=== PATIENT | female | born 1950 | race Hispanic/Latino ===

== ENCOUNTER → 2017-11-18 | Outpatient (CLI) | payer MEDICARE | END | disposition home or self-care (01) | LOC: OIH 16:43 | PROVIDERS: ATTEND Internal Medicine | DX: J84.9 Interstitial pulmonary disease, unspecified (principal); M19.011 Primary osteoarthritis, right shoulder; I51.7 Cardiomegaly | CPT/HCPCS: 71046 ==

== ENCOUNTER → 2017-11-25 | Outpatient (CLI) | payer MEDICARE | END | disposition home or self-care (01) | LOC: OIH 10:15 | PROVIDERS: ATTEND Internal Medicine | DX: J20.9 Acute bronchitis, unspecified (principal); J18.0 Bronchopneumonia, unspecified organism; M47.895 Other spondylosis, thoracolumbar region | CPT/HCPCS: 71046 ==

== ENCOUNTER → 2018-03-15 | Outpatient (CLI) | payer MEDICARE ==
[~2018-03-15] MED LIST: ALBUHFA IH; ALPR-409 PO; APIX5TAB PO; CHOL200013 PO; CLON0.5T23 PO; CYAN250014 PO; D-ME118S56 PO; DICL50TA9 PO; ERGO500014 PO; FERR325T22 PO; FOLI1TAB15 PO; FURO40TA5 PO; INSLAN SQ; LACT10SO32 PO; LEVO137T2 PO; LINA5TAB PO; LOSA100T58 PO; MAGN400C PO; MONT10TA24 PO; NAPR-337 PO; PANT40TA25 PO; POTA-79 PO; PREG100C PO; SOTA80TA PO; SYMB8060 IH; TRAM50TA4 PO
== END | disposition home or self-care (01) ==
LOC: OIH 09:03
PROVIDERS: ATTEND Internal Medicine
DX: I51.7 Cardiomegaly (principal); M13.812 Other specified arthritis, left shoulder; M13.811 Other specified arthritis, right shoulder; I50.9 Heart failure, unspecified
CPT/HCPCS: 71046

== ENCOUNTER → 2018-03-24 | Outpatient (CLI) | payer MEDICARE ==
[~2018-03-24] VITALS: Ht 152.4 cm; Wt 95.3 kg
[~2018-03-24] MED LIST changes: +CEFAZOLIN SODIUM 1 GM VIAL IVP ONE; +DESV100T16 PO; +DOCU100T PO; +LACT10SO PO; +ZOLP5TAB2 PO
[2018-03-24 15:56] LABS: BASOPHILS % (AUTO) 0.3 % (0.0-5.0); EOSINOPHILS % (AUTO) 2.4 % (0.0-8.0); HEMATOCRIT 26.9 % (36-48); LYMPHOCYTES % (AUTO) 13.6 % (21.0-51.0); MEAN CORPUSCULAR HEMOGLOBIN 30.3 pg (27.0-33.0); MEAN CORPUSCULAR HGB CONC 33.8 g/dL (32.0-36.0); MEAN CORPUSCULAR VOLUME 89.7 fL (79-99); NEUTROPHILS % (AUTO) 71.7 % (40.0-77.0); PLATELET COUNT (AUTO) 94 K/uL (130-400); RED CELL DISTRIBUTION WIDTH 15.2 % (11.0-15.5)
[2018-03-24 16:06] LABS: APPEARANCE,URINE Turbid (CLEAR); BILIRUBIN,URINE Small (NEGATIVE); COLOR,URINE Dark Yellow (YELLOW); GLUCOSE, URINE (UA) Negative (NEGATIVE); KETONES,URINE Trace mg/dL (NEGATIVE); LEUKOCYTE ESTERASE ,URINE Moderate (NEGATIVE); NITRATE,URINE Negative (NEGATIVE); OCCULT BLOOD,URINE Negative (NEGATIVE); PROTEIN,URINE POS 1+ (NEGATIVE)
[2018-03-24 16:20] LABS: INR 1.13 (0.85-1.15); PARTIAL THROMBOPLASTIN TIME 36.4 SEC (26.3-35.5); PROTHROMBIN TIME 11.8 SEC (9.6-11.6)
[2018-03-24 16:33] LABS: POTASSIUM 3.4 mmol/L (3.5-5.1)
[2018-03-24 16:45] VITALS: BP 111/41
[2018-03-24 16:46] LABS: BACTERIA,URINE Few /HPF (None Seen); RBC,URINE None Seen /HPF (0-1); SQUAMOUS EPITHELIAL CELL,UR 30-50 /HPF (0-2)
--- NOTE | 2018-03-24 16:46 | NUR ---
NOTE DR REDMOND HAS BEEN MADE AWARE THAT PATIENT TOOK ELIQUIS TODAY, ORDERS TO INSTRUCT PATIENT TO STOP ANY FURTHER DOSES. PT VERBALIZES UNDERSTANDING AND SON.
--- NOTE | 2018-03-24 17:15 | NUR ---
NOTE/ABNORMAL LABS DR. REDMOND NOTIFIED OF PT'S ABNORMAL LBAS UA- NITRATES NEGATIVE, ULEUKEST MODERATE, UWBC 6-10, HX VRE IN URINE, POTASSIUM 3.4,BUN 26, CA 8.1, PT 11.8, PTT 36.4, HGB 9.1, HCT 26.9, PLATELET 94. ALSO REPORTED THAT PT'S RIGHT LEG STILL SWOLLEN AND RED PER PREOP NURSE. PER DR. REDMOND, CANCEL PROCEDURE AND WILL RESCHEDULE PT DUE TO LOW HGB. INSTRUCT PATIENT TO SEE HER PCP FOR HER UTI. CALLED PT, SPOKE TO PT'S SON WITH PT BY HIS SIDE, EXPLAINED PROCEDURE FOR TUESDAY IS CX PER DR. REDMOND AND INSTRUCTED BOTH FOR PT TO SEE HER PRIMARY DOCTOR FOR HER UTI. Estuardo GOMEZ MANAGER AUDIT ALSO NOTIFIED.
== END | disposition home or self-care (01) ==
LOC: DAH 10:00 → EDSTATUS 15:00
PROVIDERS: ATTEND Orthopaedic Surgery
DX: M17.11 Unilateral primary osteoarthritis, right knee (principal); I48.91 Unspecified atrial fibrillation; Z79.899 Other long term (current) drug therapy
CPT/HCPCS: 36415; 80048; 81001; 85025; 85610; 85730

== ENCOUNTER 2018-04-11 14:30 | Inpatient (IN) | payer MEDICARE ==
[~2018-04-11] VITALS: Ht 154.9 cm; Wt 93.9 kg
[~2018-04-11 14:30] MED LIST changes: -ALPR-409 PO; -CEFAZOLIN SODIUM 1 GM VIAL IVP ONE; -CHOL200013 PO; -CYAN250014 PO; -D-ME118S56 PO; -INSLAN SQ; -LACT10SO PO; -LACT10SO32 PO; -NAPR-337 PO; -POTA-79 PO; -PREG100C PO; -SYMB8060 IH; -TRAM50TA4 PO; -ZOLP5TAB2 PO
[2018-06-16 16:50] VITALS: BP 165/69
[2018-06-16 17:26] LABS: APPEARANCE,URINE Clear (CLEAR); BILIRUBIN,URINE Negative (NEGATIVE); COLOR,URINE Yellow (YELLOW); GLUCOSE, URINE (UA) Negative (NEGATIVE); KETONES,URINE Negative (NEGATIVE); LEUKOCYTE ESTERASE ,URINE Trace (NEGATIVE); NITRATE,URINE Negative (NEGATIVE); OCCULT BLOOD,URINE Negative (NEGATIVE); PROTEIN,URINE Negative (NEGATIVE)
[2018-06-16 17:27] LABS: BASOPHILS % (AUTO) 0.3 % (0.0-5.0); EOSINOPHILS % (AUTO) 1.6 % (0.0-8.0); HEMATOCRIT 36.1 % (36-48); LYMPHOCYTES % (AUTO) 14.5 % (21.0-51.0); MEAN CORPUSCULAR HEMOGLOBIN 31.1 pg (27.0-33.0); MEAN CORPUSCULAR HGB CONC 33.4 g/dL (32.0-36.0); MEAN CORPUSCULAR VOLUME 93.3 fL (79-99); MONOCYTES % (AUTO) 7.8 % (3.0-13.0); NEUTROPHILS % (AUTO) 75.8 % (40.0-77.0); PLATELET COUNT (AUTO) 76 K/uL (130-400); RED BLOOD CELL COUNT(AUTO) 3.87 MIL/uL (4.00-5.50); RED CELL DISTRIBUTION WIDTH 13.9 % (11.0-15.5); WHITE BLOOD COUNT (AUTO) 3.9 K/uL (4.8-10.8)
[2018-06-16 17:33] LABS: CREATININE 0.6 mg/dL (0.5-1.5); POTASSIUM 4.1 mmol/L (3.5-5.1)
[2018-06-16 17:42] LABS: BACTERIA,URINE Rare /HPF (None Seen); RBC,URINE None Seen /HPF (0-1); SQUAMOUS EPITHELIAL CELL,UR 0-2 /HPF (0-2)
[2018-06-16] MEDS ORDERED: TRAM50TA4 PO (18:09)
[2018-06-16] MEDS ORDERED: BUDE10.2 IH (18:09)
[2018-06-16] MEDS ORDERED: ALBUTEROL NEB IH (18:09)
[2018-06-16] MEDS ORDERED: FLUTICASONE NASAL (18:09)
[2018-06-16] MEDS ORDERED: ARIP10TA16 PO (18:09)
[2018-06-16 18:23] LABS: INR 1.06 (0.85-1.15); PARTIAL THROMBOPLASTIN TIME 27.3 SEC (26.3-35.5); PROTHROMBIN TIME 11.1 SEC (9.6-11.6)
--- NOTE | 2018-06-16 18:31 | NUR ---
LABS INFORMED DR. REDMOND OF ABNORMAL UA, PLATELETS. NO ORDERS RECEIVED PROCEED WITH PLANNED PROCEDURE.
[2018-06-19] VITALS (25 sets, daily range): BP systolic 119–193; BP diastolic 45–95
[2018-06-19] MEDS ORDERED: CEFAZOLIN 3GM /D5W 100ML 100 ML IV PRN (08:00)
[2018-06-19] MEDS ORDERED: SODIUM CHLORIDE 0.9% 1000ML 1,000 ML IV ONE ×2 (10:59→12:26)
[2018-06-19] MEDS ORDERED: CEFAZOLIN SODIUM 1 GM VIAL ONE ×2 (10:59→12:00)
[2018-06-19 11:10] LABS: PLATELET COUNT (AUTO) 68 K/uL (130-400)
[2018-06-19] MEDS ORDERED: GENTAMICIN SULFATE 240 MG in SODIUM CHLORIDE 0.9% 100 ML IV SCH (11:15)
[2018-06-19] MEDS ORDERED: ACETAMINOPHEN EXTRA STRENGTH 500 MG TABLET ONE (11:25)
[2018-06-19] MEDS ORDERED: CELECOXIB 200 MG CAP ONE (11:25)
[2018-06-19] MEDS ORDERED: METOCLOPRAMIDE 10 MG/2 ML VIAL ONE (11:25)
[2018-06-19] MEDS ORDERED: OXYCODONE HCL 10 MG TAB.SR.12H PO ONE (11:26)
[2018-06-19 11:53] LABS: INR 1.09 (0.85-1.15); PROTHROMBIN TIME 11.4 SEC (9.6-11.6)
[2018-06-19 12:27] LABS: PARTIAL THROMBOPLASTIN TIME 27.1 SEC (26.3-35.5)
[2018-06-19] MEDS ORDERED: ROPIVACAINE 0.5% 5MG/ML 30ML IJ ONE (13:04)
[2018-06-19] MEDS: TRANEXAMIC ACID 1000MG/10ML IV ONE ×2 (13:45→16:00)
[2018-06-19] MEDS ORDERED: VANCOMYCIN HCL 1 GM VIAL ONE (14:46)
[2018-06-19] MEDS ORDERED: POTASSIUM CHLORIDE 10% ELIXIR 20 MEQ/15 ML UDCUP PO PRN (15:45)
[2018-06-19] MEDS ORDERED: CALCIUM CARBONATE 500 MG TABLET PO PRN (15:45)
[2018-06-19] MEDS ORDERED: POTASSIUM CHLORIDE 20 MEQ ERTAB PO PRN (15:45)
[2018-06-19] MEDS ORDERED: TEMAZEPAM 15 MG CAPSULE PO PRN (15:45)
[2018-06-19] MEDS ORDERED: TRAMADOL HCL 50 MG TABLET PO PRN (15:45)
[2018-06-19] MEDS: SODIUM CHLORIDE 0.9% 1000ML 1,000 ML IV SCH (15:45)
[2018-06-19] MEDS ORDERED: FERROUS FUMARATE 324 MG TABLET PO PRN (15:45)
[2018-06-19] MEDS ORDERED: ONDANSETRON HCL 4 MG/2 ML VIAL IVP PRN (15:45)
[2018-06-19] MEDS ORDERED: DiphenhydrAMINE HCL 50 MG/ML VIAL IVP PRN (15:45)
[2018-06-19] MEDS ORDERED: OXYCODONE HCL 5 MG TAB PO PRN (15:45)
[2018-06-19] MEDS ORDERED: LIDOCAINE HCL-MPF 1% 2ML VIAL IVP PRN (15:45)
[2018-06-19] MEDS ORDERED: POTASSIUM CHLORIDE 20MEQ/100ML 100 ML IV PRN (15:45)
[2018-06-19] MEDS ORDERED: IPRATROPIUM/ALBUTEROL SULFATE 3 ML SOLUTION IH ONE (16:15)
[2018-06-19] MEDS: INSULIN HUMULIN R 100 UNIT/ML 3ML SQ SCH ×2 (16:30→21:00)
[2018-06-19] MEDS ORDERED: HYDRALAZINE HCL 20 MG/ML VIAL ONE (16:42)
[2018-06-19] MEDS ORDERED: DEXTROSE 50%-WATER 50 ML DISP.SYRIN IV ONE (16:55)
--- NOTE | 2018-06-19 17:49 | NUR ---
DCP CM met with pt and family discussed dc plans. Pt is semi-independent prior to admission, lives at home with son. Has a walker, bskendall, provider, [facility]. Denies any other equipments/services. Pt feels safe to go back home son able to assist with transportation and needs as necessary. Pt agreeable for HH vs SNF if necessary, would like to decide once knee is stable and closer to dc. DC plan to home vs home w/HH or rehab. CM ot cont to follow up. Addendum: 06/19/18 at 1751 by OLMAN CHAMBERLAIN LVN CM Amended: Links added.
--- NOTE | 2018-06-19 18:00 | NUR ---
DR. MARY HALL MD REGARDING CONSULT. NO ANSWER AT THIS TIME.
[2018-06-19] MEDS ORDERED: SUB TO ALBUTEROL 2.5MG/3ML NEBULES PER P&T IH SCH (19:30)
[2018-06-19] MEDS: CEFAZOLIN SODIUM 1 GM VIAL IVP SCH (20:18)
[2018-06-19] MEDS: FAMOTIDINE 20MG TAB 20 MG TAB PO SCH (20:18)
[2018-06-19] MEDS: HEPARIN SODIUM 5000UNIT/ML 1ML VIAL SQ SCH (20:19)
[2018-06-19] MEDS: OXYCODONE HCL 5 MG TAB PO PRN (20:26)
[2018-06-19] MEDS ORDERED: DICLOFENAC SODIUM 50 MG PO SCH (21:00)
[2018-06-19] MEDS ORDERED: ALBUTEROL IH PRN (21:00)
[2018-06-19] MEDS ORDERED: TRAMADOL HCL 50 MG TABLET PO SCH (21:00)
[2018-06-19] MEDS: ARIPIPRAZOLE 5 MG TABLET PO SCH (21:10)
[2018-06-19] MEDS: SOTALOL HCL 80 MG TABLET PO SCH (21:10)
[2018-06-19] MEDS: FUROSEMIDE 40 MG TABLET PO SCH (21:10)
[2018-06-19] MEDS: CLONAZEPAM 0.5 MG TABLET PO PRN (21:10)
[2018-06-19] MEDS: FERROUS SULFATE 325 MG TABLET.DR PO SCH (21:10)
[2018-06-19] MEDS ORDERED: DOCUSATE SODIUM 100 MG CAP PO PRN (21:15)
[2018-06-20] VITALS (7 sets, daily range): BP systolic 101–128; BP diastolic 55–70
[2018-06-20] MEDS: OXYCODONE HCL 5 MG TAB PO PRN ×4 (00:30→20:44)
[2018-06-20] MEDS: SODIUM CHLORIDE 0.9% 1000ML 1,000 ML IV SCH ×2 (01:45→11:45)
[2018-06-20] MEDS ORDERED: OXYCODONE HCL 10 MG TAB.SR.12H PO ONE (03:10)
[2018-06-20] MEDS: CEFAZOLIN SODIUM 1 GM VIAL IVP SCH (03:38)
[2018-06-20 04:43] LABS: HEMATOCRIT 32.5 % (36-48); MEAN CORPUSCULAR HEMOGLOBIN 31.4 pg (27.0-33.0); MEAN CORPUSCULAR HGB CONC 33.5 g/dL (32.0-36.0); MEAN CORPUSCULAR VOLUME 93.7 fL (79-99); PLATELET COUNT (AUTO) 75 K/uL (130-400); RED BLOOD CELL COUNT(AUTO) 3.47 MIL/uL (4.00-5.50); RED CELL DISTRIBUTION WIDTH 13.4 % (11.0-15.5); WHITE BLOOD COUNT (AUTO) 2.2 K/uL (4.8-10.8)
[2018-06-20 04:54] LABS: CREATININE 0.8 mg/dL (0.5-1.5)
[2018-06-20] MEDS: LEVOTHYROXINE 25 MCG TABLET PO SCH (05:28)
[2018-06-20] MEDS: LEVOTHYROXINE 112 MCG TABLET PO SCH (05:28)
[2018-06-20] MEDS: INSULIN HUMULIN R 100 UNIT/ML 3ML SQ SCH ×4 (05:29→21:00)
[2018-06-20 05:58] LABS: BASOPHILS % (MANUAL) 1 % (0-2); EOSINOPHILS % (MANUAL) 1 % (1-6); LYMPHOCYTES % (MANUAL) 5 % (22-44); MAN.DIFF COMMENT-IMPRESSION MANUAL DIFFERENTIAL; MONOCYTES % (MANUAL) 3 % (2-9); SEGMENTED NEUTROPHILS % 90 % (40-70)
[2018-06-20 06:00] LABS: PLATELET MORPHOLOGY COMMENT MARKED DEC
[2018-06-20] MEDS: ALBUTEROL SULFATE 0.083% 2.5 MG/3 ML INH IH PRN ×4 (06:26→21:21)
[2018-06-20] MEDS ORDERED: PANTOPRAZOLE SODIUM 40 MG TABLET.DR PO SCH (09:00)
[2018-06-20] MEDS: SYMBICORT 160-4.5 MCG INHALER IH SCH ×2 (09:00→21:00)
[2018-06-20] MEDS: SOTALOL HCL 80 MG TABLET PO SCH ×2 (09:00→20:39)
[2018-06-20] MEDS: FLUTICASONE PROPIONATE 50MCG/SPRAY 16 GM BOTTLE NS SCH ×2 (09:00→21:00)
[2018-06-20] MEDS: DESVENLAFAXINE SUCCINATE 100 MG PO SCH (09:00)
[2018-06-20] MEDS: LOSARTAN 100 MG TABLET PO SCH (09:00)
[2018-06-20] MEDS: HEPARIN SODIUM 5000UNIT/ML 1ML VIAL SQ SCH ×2 (09:17→20:43)
[2018-06-20] MEDS: FOLIC ACID 1 MG TABLET PO SCH (09:28)
[2018-06-20] MEDS: MONTELUKAST SODIUM 10 MG TAB PO SCH (09:28)
[2018-06-20] MEDS: MAGNESIUM OXIDE 400 MG TABLET PO SCH (09:28)
[2018-06-20] MEDS: FERROUS SULFATE 325 MG TABLET.DR PO SCH ×2 (09:28→20:39)
[2018-06-20] MEDS: FAMOTIDINE 20MG TAB 20 MG TAB PO SCH ×2 (09:28→20:39)
[2018-06-20] MEDS: LINAGLIPTIN 5 MG TABLET PO SCH (09:28)
[2018-06-20] MEDS: POLYETHYLENE GLYCOL 3350 17 GM POWD.PACK PO SCH (09:38)
[2018-06-20] MEDS: FUROSEMIDE 40 MG TABLET PO SCH ×2 (11:30→20:39)
[2018-06-20] MEDS: CLONAZEPAM 0.5 MG TABLET PO PRN ×2 (13:57→22:39)
[2018-06-20] MEDS: ARIPIPRAZOLE 5 MG TABLET PO SCH (20:39)
[2018-06-21] VITALS (30 sets, daily range): BP systolic 109–175; BP diastolic 54–117
[2018-06-21] MEDS: ALBUTEROL SULFATE 0.083% 2.5 MG/3 ML INH IH PRN ×3 (01:03→11:14)
[2018-06-21] MEDS: LEVOTHYROXINE 25 MCG TABLET PO SCH (05:28)
[2018-06-21] MEDS: LEVOTHYROXINE 112 MCG TABLET PO SCH (05:28)
[2018-06-21] MEDS: OXYCODONE HCL 5 MG TAB PO PRN ×2 (05:29→12:20)
[2018-06-21] MEDS: INSULIN HUMULIN R 100 UNIT/ML 3ML SQ SCH ×3 (05:46→21:00)
[2018-06-21 06:29] LABS: HEMATOCRIT 31.8 % (36-48); MEAN CORPUSCULAR HEMOGLOBIN 31.9 pg (27.0-33.0); MEAN CORPUSCULAR HGB CONC 33.7 g/dL (32.0-36.0); MEAN CORPUSCULAR VOLUME 94.8 fL (79-99); PLATELET COUNT (AUTO) 62 K/uL (130-400); RED BLOOD CELL COUNT(AUTO) 3.36 MIL/uL (4.00-5.50); RED CELL DISTRIBUTION WIDTH 13.8 % (11.0-15.5); WHITE BLOOD COUNT (AUTO) 2.7 K/uL (4.8-10.8)
[2018-06-21 06:41] LABS: CREATININE 0.7 mg/dL (0.5-1.5); POTASSIUM 3.8 mmol/L (3.5-5.1)
--- NOTE | 2018-06-21 07:40 | NUR ---
LABWORK REPORTED PLATELET COUNT AND WBC LABWORK REPORTED TO DR. REDMOND, NO NEW ORDERS AT THE TIME. READY WITH 2 PLATELET UNITS IF NEEDED IN SURGERY. WILL CONTINUE TO MONITOR PT CLOSELY.
[2018-06-21 08:00] LABS: EOSINOPHILS % (MANUAL) 2 % (1-6); LYMPHOCYTES % (MANUAL) 23 % (22-44); MAN.DIFF COMMENT-IMPRESSION MANUAL DIFFERENTIAL; MONOCYTES % (MANUAL) 5 % (2-9); PLATELET MORPHOLOGY COMMENT DECREASED; SEGMENTED NEUTROPHILS % 70 % (40-70)
[2018-06-21] MEDS: SOTALOL HCL 80 MG TABLET PO SCH ×2 (08:45→23:51)
[2018-06-21] MEDS: FAMOTIDINE 20MG TAB 20 MG TAB PO SCH ×2 (08:45→23:59)
[2018-06-21] MEDS: SYMBICORT 160-4.5 MCG INHALER IH SCH ×2 (09:00→21:00)
[2018-06-21] MEDS: LINAGLIPTIN 5 MG TABLET PO SCH (09:00)
[2018-06-21] MEDS: LOSARTAN 100 MG TABLET PO SCH (09:00)
[2018-06-21] MEDS: MONTELUKAST SODIUM 10 MG TAB PO SCH (09:00)
[2018-06-21] MEDS: DESVENLAFAXINE SUCCINATE 100 MG PO SCH (09:00)
[2018-06-21] MEDS: POLYETHYLENE GLYCOL 3350 17 GM POWD.PACK PO SCH (09:00)
[2018-06-21] MEDS: HEPARIN SODIUM 5000UNIT/ML 1ML VIAL SQ SCH (09:00)
[2018-06-21] MEDS: FUROSEMIDE 40 MG TABLET PO SCH ×2 (09:00→23:59)
[2018-06-21] MEDS: FLUTICASONE PROPIONATE 50MCG/SPRAY 16 GM BOTTLE NS SCH ×2 (09:00→21:00)
[2018-06-21] MEDS: FERROUS SULFATE 325 MG TABLET.DR PO SCH (09:00)
[2018-06-21] MEDS: FOLIC ACID 1 MG TABLET PO SCH (09:00)
[2018-06-21] MEDS: MAGNESIUM OXIDE 400 MG TABLET PO SCH (09:00)
[2018-06-21] MEDS: CLONAZEPAM 0.5 MG TABLET PO PRN (10:36)
[2018-06-21] MEDS ORDERED: CEFAZOLIN SODIUM 1 GM VIAL IVP PRN (13:45)
[2018-06-21] MEDS ORDERED: SODIUM CHLORIDE 0.9% 1000ML 1,000 ML IV ONE ×2 (14:13→14:14)
[2018-06-21] MEDS ORDERED: ROPIVACAINE 0.5% 5MG/ML 30ML IJ ONE (15:42)
[2018-06-21] MEDS ORDERED: SUCCINYLCHOLINE 200MG/10ML SYR ONE (15:44)
[2018-06-21] MEDS ORDERED: DEXTROSE 50%-WATER 50 ML DISP.SYRIN IV ONE (15:44)
[2018-06-21] MEDS ORDERED: LIDOCAINE PF 2% 5ML ABBOJECT ONE (15:44)
[2018-06-21] MEDS ORDERED: PROPOFOL 10 MG/ML 20ML VIAL IV ONE (15:46)
[2018-06-21] MEDS ORDERED: DEXAMETHASONE SOD PHOSPHATE 10MG/ML 1ML VIAL ONE (15:46)
[2018-06-21] MEDS ORDERED: NEOSTIGMINE 5MG/5ML SYR IV ONE (15:46)
[2018-06-21] MEDS ORDERED: GLYCOPYRROLATE 1 MG/5 ML SYRINGE ONE (15:46)
[2018-06-21] MEDS ORDERED: ONDANSETRON HCL 4 MG/2 ML VIAL ONE (15:46)
[2018-06-21] MEDS ORDERED: MIDAZOLAM HCL 1 MG/ML 2ML VIAL ONE (15:47)
[2018-06-21] MEDS ORDERED: FENTANYL CITRATE PF 50 MCG/1 ML 2ML VIAL ONE ×3 (15:47→19:48)
[2018-06-21] MEDS ORDERED: ROCURONIUM 10MG/1ML SYR 10 MG/ML ML ONE (15:47)
[2018-06-21] MEDS ORDERED: CEFAZOLIN SODIUM 1 GM VIAL ONE ×3 (15:54→19:38)
[2018-06-21] MEDS ORDERED: LIDOCAINE HCL 4% LTA SOL 4 ML VIAL ONE (20:04)
[2018-06-21] MEDS ORDERED: FUROSEMIDE 10 MG/ML 4ML VIAL ONE (20:07)
[2018-06-21] MEDS: SODIUM CHLORIDE 0.9% 1000ML 1,000 ML IV SCH (20:50)
[2018-06-21] MEDS ORDERED: KETOROLAC TROMETHAMINE 15MG/ML IV PRN (21:00)
[2018-06-21] MEDS ORDERED: FERROUS FUMARATE 324 MG TABLET PO PRN (21:00)
[2018-06-21] MEDS ORDERED: DiphenhydrAMINE HCL 50 MG/ML VIAL IVP PRN (21:00)
[2018-06-21] MEDS ORDERED: LIDOCAINE HCL-MPF 1% 2ML VIAL IVP PRN (21:00)
[2018-06-21] MEDS ORDERED: CALCIUM CARBONATE 500 MG TABLET PO PRN (21:00)
[2018-06-21] MEDS ORDERED: POTASSIUM CHLORIDE 20MEQ/100ML 100 ML IV PRN (21:00)
[2018-06-21] MEDS ORDERED: ONDANSETRON HCL 4 MG/2 ML VIAL IVP PRN (21:00)
[2018-06-21] MEDS ORDERED: ESMOLOL HCL 10 MG/ML 10 ML VIAL ONE (21:08)
[2018-06-21] MEDS ORDERED: METOPROLOL TARTRATE 1 MG/ML 5ML VIAL IV ONE (21:29)
[2018-06-21] MEDS ORDERED: PROPOFOL 1000 MG/100 ML 100 ML IV ONE (21:33)
[2018-06-21] MEDS ORDERED: DILTIAZEM HCL 5 MG/ML 5 ML VIAL IVP ONE ×2 (21:40→23:19)
[2018-06-21 22:59] LABS: ABG BASE EXCESS 2.4 mmol/L (-2.0-3.0); ABG HCO3 26.2 mmol/L (21.0-28.0); ABG OXYGEN SATURATION 99.8 % (95.0-99.0); ABG PCO2 38 mmHg (32-45)
[2018-06-21] MEDS ORDERED: DILTIAZEM HCL 5 MG/ML 10 ML VIAL IV ONE (23:18)
[2018-06-21] MEDS ORDERED: SODIUM CHLORIDE 0.9% 100 ML IV ONE (23:21)
[2018-06-21] MEDS: DILTIAZEM 125MG+100 ML NS 125 ML IV PRN (23:45)
[2018-06-21] MEDS: ARIPIPRAZOLE 5 MG TABLET PO SCH (23:58)
[2018-06-22] VITALS (36 sets, daily range): BP systolic 66–144; BP diastolic 36–96
[2018-06-22] MEDS: HEPARIN SODIUM 5000UNIT/ML 1ML VIAL SQ SCH ×2 (00:24→09:27)
[2018-06-22] MEDS: CEFAZOLIN SODIUM 1 GM VIAL IVP SCH ×2 (02:01→12:18)
[2018-06-22] MEDS: PROPOFOL 1000 MG/100 ML IV PRN ×5 (02:47→23:28)
[2018-06-22 04:26] LABS: HEMATOCRIT 33.8 % (36-48); MEAN CORPUSCULAR HEMOGLOBIN 31.4 pg (27.0-33.0); MEAN CORPUSCULAR HGB CONC 33.6 g/dL (32.0-36.0); MEAN CORPUSCULAR VOLUME 93.6 fL (79-99); NUCLEATED RED BLOOD CELLS 0.2 % (0.0-0.19); PLATELET COUNT (AUTO) 101 K/uL (130-400); RED BLOOD CELL COUNT(AUTO) 3.62 MIL/uL (4.00-5.50); RED CELL DISTRIBUTION WIDTH 13.8 % (11.0-15.5); WHITE BLOOD COUNT (AUTO) 11.7 K/uL (4.8-10.8)
[2018-06-22 04:34] LABS: CREATININE 0.7 mg/dL (0.5-1.5)
[2018-06-22] MEDS: LEVOTHYROXINE 112 MCG TABLET PO SCH (06:19)
[2018-06-22] MEDS: LEVOTHYROXINE 25 MCG TABLET PO SCH (06:19)
[2018-06-22] MEDS: INSULIN HUMULIN R 100 UNIT/ML 3ML SQ SCH ×3 (06:25→18:00)
[2018-06-22] MEDS: SODIUM CHLORIDE 0.9% 1000ML 1,000 ML IV SCH ×2 (06:50→16:50)
[2018-06-22 07:40] LABS: ABG BASE EXCESS 4.7 mmol/L (-2.0-3.0); ABG OXYGEN SATURATION 98.3 % (95.0-99.0); ABG PCO2 26 mmHg (32-45)
--- NOTE | 2018-06-22 08:00 | NUR ---
RECEIVED PATIENT IN BED, ON VENTILATOR ON THE FOLLOWING SETTINGS: SIMV MODE RATE 16/TV 550/ PS 10/ PEEP 5 / FIO2 30%. PT ON PROPOFOL AT 30MCG FOR SEDATION. PT WITH CARDIZEM DRIP AT 10MG D/T AFIB RVR AFTER PROCEDURE. PT IS POD #1 RIGHT TOTAL KNEE COMPLEX ARTHROPLASTY. DRESSING TO LOWER EXTREMITY D/I, JOANNE BANDAGE NOTED, WITH HEMOVAC NOTED. PLAN IS TO WEAN OFF VENTILATOR. NO FAMILY PRESENT AT THIS TIME. TELE WITH AFIB. WILL CONT TO MONITOR CLOSELY. Addendum: 06/22/18 at 1527 by TREMAYNE BYRD RN RN MORNING ABG RESULTS REPORTED TO DR. LEUNG. NEW ORDERS RECEIVED TO BE CARRIED OUT.
--- NOTE | 2018-06-22 08:08 | NUR ---
ROUNDS MEREDITH STAGE ELECTRICIAN HELPER WITH DR. REDMOND IN TO SEE PATIENT. NO NEW ORDERS RECEIVED AT THIS TIME. SHE WAS UPDATED ON POC.
[2018-06-22] MEDS: DILTIAZEM 125MG+100 ML NS 125 ML IV PRN (08:11)
[2018-06-22] MEDS: SYMBICORT 160-4.5 MCG INHALER IH SCH ×2 (08:45→21:00)
[2018-06-22] MEDS: FLUTICASONE PROPIONATE 50MCG/SPRAY 16 GM BOTTLE NS SCH ×2 (08:45→21:00)
[2018-06-22] MEDS: ERGOCALCIFEROL (VITAMIN D2) 50,000 UNIT CAPSULE PO SCH (09:00)
[2018-06-22] MEDS: APIXABAN 2.5 MG TABLET PO SCH ×3 (09:00→21:27)
[2018-06-22] MEDS: LINAGLIPTIN 5 MG TABLET PO SCH (09:00)
[2018-06-22] MEDS: DESVENLAFAXINE SUCCINATE 100 MG PO SCH (09:00)
[2018-06-22] MEDS ORDERED: MAGNESIUM 2GM PREMIX 50ML 50 ML IV PRN (09:00)
[2018-06-22 09:06] LABS: CREATINE KINASE, TOTAL 118 U/L (21-232); MYOGLOBIN 253 ng/mL (10-92); TROPONIN I < 0.04 ng/mL (0.00-0.06)
[2018-06-22] MEDS: MONTELUKAST SODIUM 10 MG TAB PO SCH (09:24)
[2018-06-22] MEDS: SOTALOL HCL 80 MG TABLET PO SCH ×2 (09:24→21:28)
[2018-06-22] MEDS: MAGNESIUM OXIDE 400 MG TABLET PO SCH (09:25)
[2018-06-22] MEDS: LOSARTAN 100 MG TABLET PO SCH (09:25)
[2018-06-22] MEDS: FAMOTIDINE 20MG TAB 20 MG TAB PO SCH ×2 (09:25→21:28)
[2018-06-22] MEDS: FOLIC ACID 1 MG TABLET PO SCH (09:25)
[2018-06-22] MEDS: FUROSEMIDE 40 MG TABLET PO SCH ×2 (09:25→21:28)
[2018-06-22] MEDS: POLYETHYLENE GLYCOL 3350 17 GM POWD.PACK PO SCH (09:25)
--- NOTE | 2018-06-22 10:50 | NUR ---
Per HENRIK Page to Hold Physical Therapy Evaluation, patient is still intubated. Addendum: 06/22/18 at 1051 by JIMENA BOWEN, PT PT Amended: Links added.
--- NOTE | 2018-06-22 11:50 | NUR ---
MD ROUNDS DR. LEUNG IN TO SEE PATIENT. I UPDATED MD, CHANGES TO VENTILATOR MADE. PT TO REMAIN INTUBATED D/T TACHYPNEA 40-50 RATE. NEW ORDERS RECEIVED TO BE CARRIED OUT. SHAWN WILSON MADE AWARE OF CHANGES.
--- NOTE | 2018-06-22 12:00 | NUR ---
MD ROUNDS DR. CONTRERAS IN TO SEE PATIENT. HE STATES HE IS FAMILIAR WITH PATIENT. HE WILL REVIEW RECORD. NO NEW ORDERS AT THIS TIME.
[2018-06-22] MEDS: IPRATROPIUM/ALBUTEROL SULFATE 3 ML SOLUTION IH SCH ×3 (13:17→21:51)
[2018-06-22 13:55] LABS: INR 1.09 (0.85-1.15); PARTIAL THROMBOPLASTIN TIME 27.1 SEC (26.3-35.5); PROTHROMBIN TIME 11.4 SEC (9.6-11.6)
[2018-06-22 14:07] LABS: CREATINE KINASE, TOTAL 165 U/L (21-232); MYOGLOBIN 159 ng/mL (10-92); TROPONIN I < 0.04 ng/mL (0.00-0.06)
--- NOTE | 2018-06-22 15:33 | NUR ---
Per Nursing, patient still intubated and schedule for PICC line placement this pm,.Patient was sedated.Hold Physical Therapy Evaluation for this afternoon. Addendum: 06/22/18 at 1539 by JIMENA BOWEN, PT PT Amended: Links added.
--- NOTE | 2018-06-22 15:37 | NUR ---
RIGHT UPPER ARM 3 LUMEN 6 FR PICC LINE PLACED. PENDING PLACEMENT VERIFICATION VIA CHEST XRAY. TELEPHONE CONSENT OBTAINED FROM JHONNY DOWNEYILLO, PT'S SON. CONSENT VERIFIED WITH ÁNGEL CHESTER.
[2018-06-22] MEDS ORDERED: BISACODYL 10 MG SUPP.RECT RC PRN (15:45)
--- NOTE | 2018-06-22 16:12 | NUR ---
INFORMED DR. LEUNG OF CXR RESULTS FOR PICC LINE, INFORMED ANNETTE OF DECREASED BLOOD PRESSURE 66/36. NEW ORDERS RECEIVED FOR LEVOPHED, OKAY TO USE PICC LINE AND TO GIVE 1 LITER LR BOLUS. ORDERS TO BE CARRIED OUT.
[2018-06-22] MEDS ORDERED: LACTATED RINGERS 1000ML 1,000 ML IV ONE (16:15)
[2018-06-22] MEDS ORDERED: NOREPINEPHRINE 4MG/NS 250ML 250 ML IV SCH (16:30)
[2018-06-22] MEDS ORDERED: LACTATED RINGERS 1000ML IV SCH (16:30)
--- NOTE | 2018-06-22 16:45 | NUR ---
2D ECHO COMPLETE. PENDING RESULTS
[2018-06-22] MEDS: DILTIAZEM HCL 60 MG TABLET PO SCH ×2 (18:00→23:30)
[2018-06-22 21:11] LABS: TROPONIN I 0.04 ng/mL (0.00-0.06)
[2018-06-22] MEDS: ARIPIPRAZOLE 5 MG TABLET PO SCH (21:28)
[2018-06-23] VITALS (36 sets, daily range): BP systolic 83–137; BP diastolic 42–90
[2018-06-23] MEDS: INSULIN HUMULIN R 100 UNIT/ML 3ML SQ SCH ×4 (00:16→17:49)
[2018-06-23] MEDS: IPRATROPIUM/ALBUTEROL SULFATE 3 ML SOLUTION IH SCH ×6 (01:16→22:18)
[2018-06-23] MEDS: PROPOFOL 1000 MG/100 ML IV PRN ×7 (03:23→23:42)
[2018-06-23 03:39] LABS: HEMATOCRIT 32.2 % (36-48); MEAN CORPUSCULAR HEMOGLOBIN 31.3 pg (27.0-33.0); MEAN CORPUSCULAR HGB CONC 33.9 g/dL (32.0-36.0); MEAN CORPUSCULAR VOLUME 92.3 fL (79-99); NUCLEATED RED BLOOD CELLS 0.1 % (0.0-0.19); PLATELET COUNT (AUTO) 139 K/uL (130-400); RED BLOOD CELL COUNT(AUTO) 3.48 MIL/uL (4.00-5.50); RED CELL DISTRIBUTION WIDTH 13.6 % (11.0-15.5); WHITE BLOOD COUNT (AUTO) 7.8 K/uL (4.8-10.8)
[2018-06-23 03:59] LABS: ALBUMIN 2.7 g/dL (3.5-5.0); BILIRUBIN,TOTAL 0.8 mg/dL (0.2-1.0); CREATININE 0.8 mg/dL (0.5-1.5); MAGNESIUM 2.2 mg/dL (1.80-2.40); POTASSIUM 3.3 mmol/L (3.5-5.1)
[2018-06-23] MEDS: LEVOTHYROXINE 25 MCG TABLET PO SCH (06:21)
[2018-06-23] MEDS: DILTIAZEM HCL 60 MG TABLET PO SCH ×3 (06:21→17:49)
[2018-06-23] MEDS: LEVOTHYROXINE 112 MCG TABLET PO SCH (06:46)
[2018-06-23] MEDS: SYMBICORT 160-4.5 MCG INHALER IH SCH ×2 (07:59→21:00)
[2018-06-23] MEDS: DESVENLAFAXINE SUCCINATE 100 MG PO SCH (07:59)
[2018-06-23] MEDS: LOSARTAN 100 MG TABLET PO SCH (09:00)
[2018-06-23] MEDS: SOTALOL HCL 80 MG TABLET PO SCH ×2 (09:00→20:43)
[2018-06-23] MEDS: FLUTICASONE PROPIONATE 50MCG/SPRAY 16 GM BOTTLE NS SCH ×2 (09:00→21:00)
[2018-06-23] MEDS: FUROSEMIDE 40 MG TABLET PO SCH ×2 (10:00→20:43)
[2018-06-23] MEDS: FOLIC ACID 1 MG TABLET PO SCH (10:00)
[2018-06-23] MEDS: POLYETHYLENE GLYCOL 3350 17 GM POWD.PACK PO SCH (10:00)
[2018-06-23] MEDS: FAMOTIDINE 20MG TAB 20 MG TAB PO SCH ×2 (10:00→20:43)
[2018-06-23] MEDS: MONTELUKAST SODIUM 10 MG TAB PO SCH (10:00)
[2018-06-23] MEDS: LINAGLIPTIN 5 MG TABLET PO SCH (10:01)
[2018-06-23] MEDS: MAGNESIUM OXIDE 400 MG TABLET PO SCH (10:01)
[2018-06-23] MEDS: APIXABAN 5 MG TABLET PO SCH ×2 (10:01→20:43)
[2018-06-23] MEDS: POTASSIUM CHLORIDE 10% ELIXIR 20 MEQ/15 ML UDCUP PO PRN ×3 (10:01→13:53)
[2018-06-23] MEDS: PHENYLEPHRINE HCL 50 MG in SODIUM CHLORIDE 0.9% 250 ML IV PRN (10:57)
[2018-06-23] MEDS ORDERED: IOHEXOL 350 MG/ML 100ML INFUS..BTL IV ONE (12:26)
--- NOTE | 2018-06-23 12:50 | NUR ---
Patient back from CT scan. Transported with RN, RT, O2, monitors and IV drips. No issues during transport.
--- NOTE | 2018-06-23 14:16 | NUR ---
Sedation turned off at 1359. At 1410 Patient opened eyes to sound, nods yes/no, follows commands and moves all extremities. RR increased to 30. Sedation restarted.
--- NOTE | 2018-06-23 19:00 | NUR ---
RECEIVED PATIENT AT THIS TIME. PATIENT IS SEDATED ON 50MGS/KG/MIN OF PROPOFOL. SHE IS ON VENT AC R 12, TV 500 P7 FIO35, ETT 8.0, 21 AT THE LIP. PATIENT IS ON NEOSYNEPHRINE 40MCG/MIN. DRIP CONCENTRATIONS VERIFIED ON IV PUMP. HEMOVAC DRAIN IN PLACE. VITAL SIGNS WITHIN NORMAL LIMITS. PATIENT WAS REPOSITIONED, PRESSURE POINTS PROTECTED.
[2018-06-23] MEDS: ARIPIPRAZOLE 5 MG TABLET PO SCH (20:43)
[2018-06-24] VITALS (24 sets, daily range): BP systolic 89–142; BP diastolic 34–81
[2018-06-24] MEDS: DILTIAZEM HCL 60 MG TABLET PO SCH ×4 (01:09→18:00)
[2018-06-24] MEDS: IPRATROPIUM/ALBUTEROL SULFATE 3 ML SOLUTION IH SCH ×6 (01:46→21:04)
[2018-06-24 03:39] LABS: ABG BASE EXCESS 4.1 mmol/L (-2.0-3.0); ABG HCO3 26.9 mmol/L (21.0-28.0); ABG OXYGEN SATURATION 99.1 % (95.0-99.0); ABG PCO2 35 mmHg (32-45)
[2018-06-24 04:03] LABS: HEMATOCRIT 32.2 % (36-48); MEAN CORPUSCULAR HEMOGLOBIN 31.2 pg (27.0-33.0); MEAN CORPUSCULAR HGB CONC 33.8 g/dL (32.0-36.0); MEAN CORPUSCULAR VOLUME 92.4 fL (79-99); PLATELET COUNT (AUTO) 169 K/uL (130-400); RED BLOOD CELL COUNT(AUTO) 3.48 MIL/uL (4.00-5.50); WHITE BLOOD COUNT (AUTO) 10.7 K/uL (4.8-10.8)
[2018-06-24 04:29] LABS: CREATININE 0.8 mg/dL (0.5-1.5); MAGNESIUM 2.1 mg/dL (1.80-2.40); PHOSPHORUS 3.5 mg/dL (2.5-4.9); POTASSIUM 3.3 mmol/L (3.5-5.1); THYROID STIMULATING HORMONE 12.78 uIU/mL (0.36-3.74)
[2018-06-24] MEDS: POTASSIUM CHLORIDE 10% ELIXIR 20 MEQ/15 ML UDCUP PO PRN ×3 (04:35→12:15)
[2018-06-24] MEDS: INSULIN HUMULIN R 100 UNIT/ML 3ML SQ SCH ×4 (06:00→18:30)
[2018-06-24] MEDS: LEVOTHYROXINE 25 MCG TABLET PO SCH (06:20)
[2018-06-24] MEDS: LEVOTHYROXINE 112 MCG TABLET PO SCH (06:29)
[2018-06-24] MEDS: PROPOFOL 1000 MG/100 ML IV PRN ×4 (06:53→20:41)
[2018-06-24] MEDS: PHENYLEPHRINE HCL 50 MG in SODIUM CHLORIDE 0.9% 250 ML IV PRN (06:54)
[2018-06-24] MEDS ORDERED: FENTANYL CITRATE PF 50 MCG/1 ML 2ML VIAL IVP PRN (08:15)
[2018-06-24] MEDS ORDERED: FENTANYL 50 MCG/HR PATCH TD SCH (09:00)
[2018-06-24] MEDS: SYMBICORT 160-4.5 MCG INHALER IH SCH ×2 (09:00→21:00)
[2018-06-24] MEDS: DESVENLAFAXINE SUCCINATE 100 MG PO SCH (09:00)
[2018-06-24] MEDS ORDERED: DIGOXIN 250 MCG/ML 2ML AMP IV SCH (09:00)
[2018-06-24] MEDS: FLUTICASONE PROPIONATE 50MCG/SPRAY 16 GM BOTTLE NS SCH ×2 (09:00→21:00)
[2018-06-24] MEDS: LOSARTAN 100 MG TABLET PO SCH (09:00)
[2018-06-24] MEDS: METHYLPREDNISOLONE SOD SUCC 40MG/ML 1ML IVP SCH ×2 (09:40→21:22)
[2018-06-24] MEDS: MONTELUKAST SODIUM 10 MG TAB PO SCH (09:40)
[2018-06-24] MEDS: APIXABAN 5 MG TABLET PO SCH ×2 (09:40→21:23)
[2018-06-24] MEDS: FAMOTIDINE 20MG TAB 20 MG TAB PO SCH ×2 (09:40→21:23)
[2018-06-24] MEDS: FOLIC ACID 1 MG TABLET PO SCH (09:40)
[2018-06-24] MEDS: FUROSEMIDE 40 MG TABLET PO SCH ×2 (09:40→21:22)
[2018-06-24] MEDS: SOTALOL HCL 80 MG TABLET PO SCH ×2 (09:40→21:22)
[2018-06-24] MEDS: POLYETHYLENE GLYCOL 3350 17 GM POWD.PACK PO SCH (09:40)
[2018-06-24] MEDS: MAGNESIUM OXIDE 400 MG TABLET PO SCH (09:40)
--- NOTE | 2018-06-24 10:02 | NUR ---
Patient is now is SR 78.
--- NOTE | 2018-06-24 11:35 | NUR ---
Sedation restarted. RR 30+, HR 120. Patient was able to follow commands and answer yes/no. Attempted to reorient patient and assistant men's lacrosse coach breathing, unsuccessful, patient continued with high RR and HR.
--- NOTE | 2018-06-24 14:00 | NUR ---
Nutrition Intervention: Nutrition consult for TF rec's. Pt. admitted with Dx of Osteoarthritis Right Knee. Pt. S/P Right Knee Arthrotomy, proximal tibia Fx debridement(06/19/18). Pt. S/P resp. failure post surgery- s/p intubation on mech vent. support. Pt. on TF with Glucerna 1.5@20ml/hr. Labs reviewed(Alb 2.7, BG 98). Meds reviewed: Propofol prn. LBM: 06/21/18. SR-12, right knee incision. BMI: 42.2, Obesity Grade 3. Recommendations: 1) Rec. increase Glucerna 1.5 TF rate by 5ml every 5 hrs. to goal of 35ml/hr to provide 1260kcal, 69gm Pro. & 638ml water daily. 2) Rec. flush with 130ml free water every 4 hrs. 3) Continue to monitor pt's nutritional status and TF tolerance. 4) Consult RD as nutrition concerns arise. Addendum: 06/24/18 at [address] Amended: Links added.
[2018-06-24] MEDS: DIGOXIN 250 MCG/ML 2ML AMP IV SCH ×2 (14:15→18:00)
[2018-06-24] MEDS ORDERED: BISACODYL 10 MG SUPP.RECT RC PRN (21:00)
[2018-06-24] MEDS: ARIPIPRAZOLE 5 MG TABLET PO SCH (21:23)
[2018-06-25] VITALS (24 sets, daily range): BP systolic 101–147; BP diastolic 36–95
[2018-06-25] MEDS: INSULIN HUMULIN R 100 UNIT/ML 3ML SQ SCH ×4 (00:08→17:40)
[2018-06-25] MEDS: PROPOFOL 1000 MG/100 ML IV PRN ×2 (00:27→05:57)
[2018-06-25] MEDS: IPRATROPIUM/ALBUTEROL SULFATE 3 ML SOLUTION IH SCH ×6 (01:27→21:09)
[2018-06-25 03:52] LABS: HEMATOCRIT 30.3 % (36-48); MEAN CORPUSCULAR HEMOGLOBIN 31.6 pg (27.0-33.0); MEAN CORPUSCULAR HGB CONC 34.2 g/dL (32.0-36.0); MEAN CORPUSCULAR VOLUME 92.6 fL (79-99); NUCLEATED RED BLOOD CELLS 0.1 % (0.0-0.19); PLATELET COUNT (AUTO) 134 K/uL (130-400); RED BLOOD CELL COUNT(AUTO) 3.27 MIL/uL (4.00-5.50); RED CELL DISTRIBUTION WIDTH 13.4 % (11.0-15.5); WHITE BLOOD COUNT (AUTO) 5.7 K/uL (4.8-10.8)
[2018-06-25 03:55] LABS: CREATININE 0.8 mg/dL (0.5-1.5); POTASSIUM 3.9 mmol/L (3.5-5.1)
[2018-06-25 04:16] LABS: B-TYPE NATRIURETIC PEPTIDE 119 pg/mL (0-100)
[2018-06-25] MEDS: DILTIAZEM HCL 60 MG TABLET PO SCH ×4 (05:45→17:40)
[2018-06-25] MEDS: LEVOTHYROXINE 25 MCG TABLET PO SCH (05:56)
[2018-06-25] MEDS: LEVOTHYROXINE 112 MCG TABLET PO SCH (05:56)
[2018-06-25 08:08] LABS: ABG BASE EXCESS 4.1 mmol/L (-2.0-3.0); ABG HCO3 25.4 mmol/L (21.0-28.0); ABG OXYGEN SATURATION 99.4 % (95.0-99.0); ABG PCO2 29 mmHg (32-45)
[2018-06-25] MEDS: DESVENLAFAXINE SUCCINATE 100 MG PO SCH (08:43)
[2018-06-25] MEDS: FLUTICASONE PROPIONATE 50MCG/SPRAY 16 GM BOTTLE NS SCH ×2 (08:43→21:00)
[2018-06-25] MEDS: SYMBICORT 160-4.5 MCG INHALER IH SCH ×2 (08:43→21:00)
[2018-06-25] MEDS: DIGOXIN 125 MCG TABLET PO SCH (08:49)
[2018-06-25] MEDS: POLYETHYLENE GLYCOL 3350 17 GM POWD.PACK PO SCH (08:49)
[2018-06-25] MEDS: FAMOTIDINE 20MG TAB 20 MG TAB PO SCH ×2 (08:49→21:00)
[2018-06-25] MEDS: MONTELUKAST SODIUM 10 MG TAB PO SCH (08:49)
[2018-06-25] MEDS: METHYLPREDNISOLONE SOD SUCC 40MG/ML 1ML IVP SCH ×2 (08:49→20:41)
[2018-06-25] MEDS: FUROSEMIDE 40 MG TABLET PO SCH ×2 (08:49→21:00)
[2018-06-25] MEDS: CLONAZEPAM 0.5 MG TABLET PO PRN ×2 (08:49→20:25)
[2018-06-25] MEDS: MAGNESIUM OXIDE 400 MG TABLET PO SCH (08:50)
[2018-06-25] MEDS: SOTALOL HCL 80 MG TABLET PO SCH ×2 (08:50→20:25)
[2018-06-25] MEDS: APIXABAN 5 MG TABLET PO SCH ×2 (08:50→21:00)
[2018-06-25] MEDS: POTASSIUM CHLORIDE 10% ELIXIR 20 MEQ/15 ML UDCUP PO PRN (08:50)
[2018-06-25] MEDS: FOLIC ACID 1 MG TABLET PO SCH (08:50)
[2018-06-25] MEDS: LOSARTAN 100 MG TABLET PO SCH (08:51)
[2018-06-25 10:41] LABS: ABG BASE EXCESS 0.4 mmol/L (-2.0-3.0); ABG HCO3 23.4 mmol/L (21.0-28.0); ABG OXYGEN SATURATION 99.3 % (95.0-99.0); ABG PCO2 33 mmHg (32-45)
--- NOTE | 2018-06-25 19:00 | NUR ---
ASSUMED CARE ALERT & AWAKE. FAMILY AT BEDSIDE. PATIENT FREQUENTLY CLEARING THROAT AND VOICE WITH HOARSENESS. INSTRUCTED ON VOICE REST TO PREVENT LARYNGEAL EDEMA. GENERALIZED BODY WEAKNESS NOTED. O2 2L NC WITH O2 SAT 100%. FULL ASSESSMENT DOCUMENTED. INSTRUCTED TO CALL FOR ASSISTANCE.
--- NOTE | 2018-06-25 20:30 | NUR ---
ANXIETY VERY ANXIOUS AND CONTINUES CLEARING THROAT AND SUCTIONS SELF WITH YAUNKER, ALTHOUGH NO SPUTUM NOTED. CONTINUES CALLING TO REPOSITION PILLOWS, GIVE HER "MEDICINE AND PILLS", "BACK FEELS HOT", "ARMS HURT". REPOSITIONED ONTO SIDE, BILATERAL ARMS WITH MULTIPLE ECCHYMOSIS FROM WHAT APPEARS TO BE PIV ATTEMPTS. BEDSIDE SWALLOW EVAL DONE. COUGHED AFTER SIP OF WATER. HIGH RISK FOR ASPIRATION. WILL HOLD PO MEDS FOR NOW. WILL ORDER SWALLOW STUDY BY SPEECH THERAPIST TOMORROW. BEDSIDE MONITORING. SINUS RHYTHM HR 62.
[2018-06-25] MEDS: ARIPIPRAZOLE 5 MG TABLET PO SCH (21:00)
[2018-06-25] MEDS ORDERED: LORAZEPAM 2 MG/ML 1 ML VIAL IVP PRN (22:30)
[2018-06-25] MEDS ORDERED: LORAZEPAM 2 MG/ML 1 ML VIAL ONE (22:31)
--- NOTE | 2018-06-25 22:35 | NUR ---
BIPAP PLACED ON BIPAP BY R.TShonna ORDERED BY DR MCKEE QHS & PRN. CONTINUES VERY ANXIOUS AND TACHYPNEIC ON BIPAP WITH RESP RATE 36-40. NOTIFIED DR MCKEE. ORDERED ATIVAN 1MG IV PRN ANXIETY. ADMINISTERED ORDERED. MED TEACHING PROVIDED. WILL CONTINUE TO MONITOR. Addendum: 06/25/18 at 3372 by CED LANTIGUA RN RN ALSO REPORTED TO DR MCKEE PT'S S/S OF ASPIRATION. ORDERED TO HOLD PO MEDS FOR NOW AND GET SPEECH SWALLOW EVAL TOMORROW
--- NOTE | 2018-06-25 23:02 | NUR ---
TOLERATING BIPAP MORE CALM AND COOPERATIVE. RESP RATE 12. O2 Sat 100%. resting, eyes closed. arousable. sinus rhythm hr 75.
[2018-06-26] VITALS (21 sets, daily range): BP systolic 90–174; BP diastolic 34–125
[2018-06-26] MEDS: INSULIN HUMULIN R 100 UNIT/ML 3ML SQ SCH ×4 (00:25→18:00)
[2018-06-26] MEDS: IPRATROPIUM/ALBUTEROL SULFATE 3 ML SOLUTION IH SCH ×5 (01:23→18:12)
[2018-06-26 04:05] LABS: MEAN CORPUSCULAR HEMOGLOBIN 30.3 pg (27.0-33.0); MEAN CORPUSCULAR VOLUME 91.8 fL (79-99); PLATELET COUNT (AUTO) 53 K/uL (130-400); RED BLOOD CELL COUNT(AUTO) 2.83 MIL/uL (4.00-5.50); RED CELL DISTRIBUTION WIDTH 13.3 % (11.0-15.5); WHITE BLOOD COUNT (AUTO) 2.1 K/uL (4.8-10.8)
[2018-06-26 04:17] LABS: CREATININE 0.8 mg/dL (0.5-1.5); MAGNESIUM 2.6 mg/dL (1.80-2.40)
[2018-06-26 04:57] LABS: LYMPHOCYTES % (MANUAL) 4 % (22-44); MAN.DIFF COMMENT-IMPRESSION MANUAL DIFFERENTIAL; MONOCYTES % (MANUAL) 4 % (2-9); SEGMENTED NEUTROPHILS % 92 % (40-70)
[2018-06-26 04:59] LABS: PLATELET MORPHOLOGY COMMENT SLIGHTLY DECREASED
[2018-06-26] MEDS: DILTIAZEM HCL 60 MG TABLET PO SCH ×4 (06:00→18:00)
--- NOTE | 2018-06-26 06:27 | NUR ---
anxiety continued with intermittent episodes of anxiety throughout the night with respiratory rate increasing to 30-40 pm. medicated with ativan as per md order. she would pull off bipap mask at times. currently resting, eyes closed, no distress noted, resp rate 16 pm on bipap.
[2018-06-26] MEDS: LEVOTHYROXINE 112 MCG TABLET PO SCH (06:30)
[2018-06-26] MEDS: LEVOTHYROXINE 25 MCG TABLET PO SCH (06:30)
--- NOTE | 2018-06-26 06:55 | NUR ---
DR HERNANDEZ HERE TO SEE PT UPDATED. ORDERS RECEIVED, ENTERED IN MEDITECH AND CARE ENDORSED TO HENRIK SAUNDERS.
[2018-06-26] MEDS: LACTULOSE 20 GM/30 ML UDCUP PO SCH ×2 (09:00→21:56)
[2018-06-26] MEDS: MAGNESIUM OXIDE 400 MG TABLET PO SCH (09:00)
[2018-06-26] MEDS: DESVENLAFAXINE SUCCINATE 100 MG PO SCH (09:00)
[2018-06-26] MEDS: SYMBICORT 160-4.5 MCG INHALER IH SCH ×2 (09:00→21:00)
[2018-06-26] MEDS: FLUTICASONE PROPIONATE 50MCG/SPRAY 16 GM BOTTLE NS SCH ×2 (09:00→21:00)
--- NOTE | 2018-06-26 09:00 | NUR ---
DYSPHAGIA EVAL COMPLETED. +S/S OF ASPIRATION WITH ALL TEXTURES. RECOMMEND NPO, SHORT TERM ALTERNATE MEANS OF NUTRITION/HYDRATION. PATIENT INFORMATION: Pt IS A 68 YEAR OLD FEMALE REFERRED FOR A BEDSIDE DYSPHAGIA EVALUATION SECONDARY TO S/P EXTUBATION. Pt COOPERATIVE DURING TH EVALUATION. Pt REQUESTING P.O. AT THIS TIME. Pt WITH HOARSENESS WHEN SPEAKING. Pt CURRENTLY ADMITTED SECONDARY TO SURGICAL INTERVENTION (SPACER PLACEMENT TO POSTOPERATIVE STATUS). PT HAS A PAST MEDICAL HISTORY SIGNIFICANT FOR MORBID OBESITY, HYPOVENTILATION SYNDROME, SEVERE PERSISTENT ASTHMA, HISTORY OF TRACHEOSTOMY FOR RESPIRATORY FAILURE (DECANNULATED), LOWER LUMBAR SPINE WITH SPINAL STENOSIS WITH PREVIOUS SURGERY, SEVERE ANXIETY, DEPRESSION. Pt WAS EXTUBATED ON 06/25/2018 AND WAS DIFFICULT TO WEEN AFTER THE SURGERY. Pt COOPERATIVE DURING THE EVALUATION. EVALUATION: Pt PRESENTS WITH MODERATE-SEVERE PHARYNGEAL DYSPHAGIA CAUSED BY DECREASED TONGUE BASE RETRACTION, DELAYED PHARYNGEAL RESPONSE TIME AND DECREASED LARYNGEAL ELEVATION/EXCURSION. EVIDENCED BY MULTIPLE SWALLOWS, AND +S/S OF ASPIRATION OF WET VOCAL QUALITY WITH ALL TEXTURES, THROAT CLEAR WITH PUREED, MECH SOFT AND PUDDING TEXTURES AND SUPER COUGH RESPONSE WITH ALL LIQUIDS (THIN, NECTAR, HONEY THICK LIQUIDS). RECOMMENDATIONS: 1. NPO, SHORT-TERM ALTERNATE MEANS OF NUTRITION/HYDRATION. 2. LTG#1: Pt WILL TOLERATE LEAST RESTRICTIVE DIET TO MEET NUTRITION/HYDRATION WITH NO S/S OF ASPIRATION. LTG#2: SKILLED EDUCATION Pt/FAMILY/STAFF STG#1: Pt WILL PARTICIPATE IN LARYNGEAL ELEVATION/EXCURSION EXERCISES WITH 80% ACCURACY. STG#2: Pt WILL PARTICIPATE IN TONGUE BASE RETRACTION EXERCISES WITH 80% ACCURACY. STG#3: Pt WILL PARTICIPATE IN ORAL MOTOR EXERCISES WITH 80% ACCURACY. STG#4: Pt WILL PARTICIPATE IN THERAPEUTIC TRIALS OF ICE CHIPS AND PUREED TEXTURES WITH NO OVERT S/S OF ASPIRATION. STG#5: PT WILL BE ABLE TO PARTICIPATE IN MBSS AFTER 2-4 DAYS OR WHEN CURRENT STATUS IMPROVES. STG#6: SKILLED EDUCATION Pt/FAMILY/STAFF. G-CODES SWALLOWING: [id number] Addendum: 06/26/18 at 1516 by MELONIE HARDWICK, [facility] Amended: Links added.
[2018-06-26] MEDS: FOLIC ACID 1 MG TABLET PO SCH (10:08)
[2018-06-26] MEDS: APIXABAN 5 MG TABLET PO SCH ×2 (10:08→21:55)
[2018-06-26] MEDS: SOTALOL HCL 80 MG TABLET PO SCH ×2 (10:08→21:55)
[2018-06-26] MEDS: POLYETHYLENE GLYCOL 3350 17 GM POWD.PACK PO SCH (10:08)
[2018-06-26] MEDS: FAMOTIDINE 20MG TAB 20 MG TAB PO SCH ×2 (10:08→21:55)
[2018-06-26] MEDS: FUROSEMIDE 40 MG TABLET PO SCH ×2 (10:08→21:55)
[2018-06-26] MEDS: DIGOXIN 125 MCG TABLET PO SCH (10:09)
[2018-06-26] MEDS: METHYLPREDNISOLONE SOD SUCC 40MG/ML 1ML IVP SCH ×2 (10:09→21:53)
[2018-06-26] MEDS: MONTELUKAST SODIUM 10 MG TAB PO SCH (10:09)
[2018-06-26] MEDS: LOSARTAN 100 MG TABLET PO SCH (10:15)
[2018-06-26] MEDS ORDERED: MIDODRINE HCL 5 MG TABLET PO PRN (11:00)
[2018-06-26] MEDS ORDERED: MIDODRINE HCL 5 MG TABLET PO SCH (14:00)
--- NOTE | 2018-06-26 17:40 | NUR ---
PATIENT MOVED TO ROOM 232 AND REPORT GIVEN TO HENRIK CARBALLO.
[2018-06-26] MEDS: ARIPIPRAZOLE 5 MG TABLET PO SCH (21:54)
--- NOTE | 2018-06-27 | NUR ---
PT CONTINUES ON TUBE FEEDINGS VIA LEFT NG TUBE. PATENT. VERIFIED VIA GI ASPIRATE AND AIR BOLUS. PT ON GLUCERNA AT 35ML/HR. PT STATES PAIN-HEADACHE AND RIGHT LEG PAIN WHEN MOVING. PT HAS HAD LOOSE STOOL X1 AT THIS TIME. LACTULOSE WAS GIVEN, DUE TO PT STATING SHE WAS HAVING DIFFICULTY HAVING A BM. PICC LINE IN PLACE. PATENT. ABLE TO TAKE MEDICATIONS WELL VIA NG TUBE. WEAKNESS TO LEFT ARM NOTED. ABLE TO MOVE RIGHT ARM WELL. WEAKNESS TO RIGHT LE DUE TO INCISION/STABLES. AND LEFT LEG IS ABLE TO BE MOVED AROUND DURING TRANSFER.
[2018-06-27] MEDS: DILTIAZEM HCL 60 MG TABLET PO SCH ×4 (00:39→18:02)
[2018-06-27] MEDS: HYDROMORPHONE 1 MG/1 ML AMP IVP PRN ×2 (00:39→03:24)
[2018-06-27] MEDS: INSULIN HUMULIN R 100 UNIT/ML 3ML SQ SCH ×4 (00:50→18:14)
[2018-06-27] MEDS: IPRATROPIUM/ALBUTEROL SULFATE 3 ML SOLUTION IH SCH ×6 (02:00→21:51)
--- NOTE | 2018-06-27 02:00 | NUR ---
PT DRESSING CHANGE DONE AT THIS TIME. BETADINE WITH 4X4 GAUZE
[2018-06-27] MEDS: ALBUTEROL SULFATE 0.083% 2.5 MG/3 ML INH IH PRN ×2 (02:18→02:20)
[2018-06-27 03:33] LABS: BASOPHILS % (AUTO) 0.1 % (0.0-5.0); EOSINOPHILS % (AUTO) 0.2 % (0.0-8.0); HEMATOCRIT 28.8 % (36-48); MEAN CORPUSCULAR HEMOGLOBIN 31.5 pg (27.0-33.0); MEAN CORPUSCULAR HGB CONC 34.3 g/dL (32.0-36.0); MEAN CORPUSCULAR VOLUME 91.9 fL (79-99); MONOCYTES % (AUTO) 5.7 % (3.0-13.0); NUCLEATED RED BLOOD CELLS 0.2 % (0.0-0.19); PLATELET COUNT (AUTO) 57 K/uL (130-400); RED BLOOD CELL COUNT(AUTO) 3.14 MIL/uL (4.00-5.50); RED CELL DISTRIBUTION WIDTH 13.2 % (11.0-15.5); WHITE BLOOD COUNT (AUTO) 2.1 K/uL (4.8-10.8)
[2018-06-27 03:43] LABS: CREATININE 0.9 mg/dL (0.5-1.5); POTASSIUM 3.9 mmol/L (3.5-5.1)
[2018-06-27 03:54] VITALS: BP 125/56
[2018-06-27] MEDS: LEVOTHYROXINE 112 MCG TABLET PO SCH (06:22)
[2018-06-27] MEDS: LEVOTHYROXINE 25 MCG TABLET PO SCH (06:22)
[2018-06-27 07:45] VITALS: BP 138/54
[2018-06-27] MEDS: DESVENLAFAXINE SUCCINATE 100 MG PO SCH (09:00)
[2018-06-27] MEDS: FLUTICASONE PROPIONATE 50MCG/SPRAY 16 GM BOTTLE NS SCH ×2 (09:00→21:00)
[2018-06-27] MEDS: SYMBICORT 160-4.5 MCG INHALER IH SCH ×2 (09:00→21:00)
--- NOTE | 2018-06-27 10:44 | NUR ---
SWALLOW TREATMENT COMPLETED. RECOMMEND CONTINUED NPO. MBSS RECOMMENDED S: Pt SEEN IN BED. Pt WITH NG TUBE IN PLACE. PER NURSE ARMENDARIZ, Pt WAS GIVEN ATIVAN AND PAIN MEDICATION. Pt WAS DROWSY AND COOPERATIVE ( ABLE TO BED) DURING THE SESSION. Pt REQUESTING WATER AND FOOD AT THIS TIME. Pt WITH CONTINUED VOCAL HOARSENESS. ENT CONSULT IS RECOMMENDED. O: Pt CURRENTLY TARGETING DYSPHAGIA GOALS WITH THE FOLLOWING RESULTS: *Pt WILL COMPLETE ORAL MOTOR EXERCISES WITH 80% ACCURACY: 60% ACCURACY GIVEN MAX CUES. *Pt WILL COMPLETE LARYNGEAL ELEVATION/EXERCISES WITH 80% ACCURACY: 30% ACCURACY GIVEN MAX CUES *Pt WILL TOLERATE THERAPEUTIC TRIALS OF PUREED AND ICE CHIPS WITH NO OVERT S/S OF ASPIRATION: ICE CHIP TRIALS X3 WITH WET VOCAL QUALITY PRESENT. PUREED TEXTURE X3: Pt WITH DIMINISHED LARYNGEAL ELEVATION UPON MANUAL PALPATION AND DELAYED PHARYNGEAL RESPONSE TIME. NO SUPER COUGH PRESENT DURING TRIALS HOWEVER, SILENT ASPIRATION IS SUSPECTED AT THIS TIME. A: Pt WITH SWALLOW RESPONSE IN ALL TRIALS. NO ABSENT SWALLOW DURING TRIALS PRESENTED. P: RECOMMEND MBSS FOR TOMORROW. MBSS TO BE COMPLETED WHEN Pt IS NOT GIVEN MEDICATIONS THAT MAKE HER DROWSY. QUALITATIVE FIELD PROJECT MANAGER COORDINATED CARE WITH NURSE ARMENDARIZ. BOTH QUALITATIVE FIELD PROJECT MANAGER AND NURSE ARMENDARIZ AGREE THAT MBSS TO BE COMPLETED WHEN Pt'S ALERTNESS IS IMPROVED. NURSE STATED THAT HE WILL RELAY TO PASTE MIXER. RECOMMEND CONTINUED NPO WITH NG TUBE FEEDINGS Pt IS NOT SAFE FOR P.O. AT THIS TIME. Addendum: 06/27/[address] Amended: Links added.
[2018-06-27] MEDS: METHYLPREDNISOLONE SOD SUCC 40MG/ML 1ML IVP SCH ×2 (11:09→22:08)
[2018-06-27] MEDS: LACTULOSE 20 GM/30 ML UDCUP PO SCH ×2 (11:09→21:00)
[2018-06-27] MEDS: POLYETHYLENE GLYCOL 3350 17 GM POWD.PACK PO SCH (11:09)
[2018-06-27] MEDS: DIGOXIN 125 MCG TABLET PO SCH (11:09)
[2018-06-27] MEDS: LOSARTAN 100 MG TABLET PO SCH (11:10)
[2018-06-27] MEDS: MONTELUKAST SODIUM 10 MG TAB PO SCH (11:10)
[2018-06-27] MEDS: FAMOTIDINE 20MG TAB 20 MG TAB PO SCH ×2 (11:10→22:10)
[2018-06-27] MEDS: MAGNESIUM OXIDE 400 MG TABLET PO SCH (11:10)
[2018-06-27] MEDS: APIXABAN 5 MG TABLET PO SCH ×2 (11:11→22:09)
[2018-06-27] MEDS: FUROSEMIDE 40 MG TABLET PO SCH ×2 (11:11→22:09)
[2018-06-27] MEDS: FOLIC ACID 1 MG TABLET PO SCH (11:11)
[2018-06-27] MEDS: SOTALOL HCL 80 MG TABLET PO SCH ×2 (11:11→22:10)
[2018-06-27 11:23] VITALS: BP 144/59
[2018-06-27 15:30] VITALS: BP 135/62
--- NOTE | 2018-06-27 16:23 | NUR ---
Rd Follow up note Patient tolerating continuous tube feeding: Glucerna 1.5 @35mLs/hr. Patient with no tube feeding residuals. patient LBM 06/27/18. Patient monitored labs: BUN 37, Glu 234, Alb 2.7. RD to continue to monitor. Please notify RD as nutritional concerns arise. Thank you. Addendum: 06/27/18 at [address] Amended: Links added.
--- NOTE | 2018-06-27 18:06 | NUR ---
RAJNI PLAN VISITED WITH PATIENT. PATIENT REFUSING TO GO TO [facility]. SAYS THAT SHE CAN GO TO THERAPY. EXPLAINED THAT SHE FAILED THE SWALLOW STUDY AND NEEDS TIME TO HEAL. SPENT 30 MIN TALKING TO PATIENT. CM WILL CONTINUE TO FOLLOW. Addendum: 06/27/18 at 1807 by NURA WHITING RN CM Amended: Links added.
[2018-06-27 19:19] VITALS: BP 155/56
[2018-06-27] MEDS: ARIPIPRAZOLE 5 MG TABLET PO SCH (22:09)
[2018-06-27 23:43] VITALS: BP 165/57
[2018-06-28] VITALS (7 sets, daily range): BP systolic 132–161; BP diastolic 37–83
[2018-06-28] MEDS: DILTIAZEM HCL 60 MG TABLET PO SCH ×4 (01:08→17:58)
[2018-06-28] MEDS: INSULIN HUMULIN R 100 UNIT/ML 3ML SQ SCH ×5 (01:11→20:49)
[2018-06-28] MEDS: IPRATROPIUM/ALBUTEROL SULFATE 3 ML SOLUTION IH SCH ×6 (01:35→22:13)
--- NOTE | 2018-06-28 02:00 | NUR ---
DRESSING CHANGE COMPLETE TO RIGHT KNEE AREA. ORAL CARE PROVIDED.
[2018-06-28] MEDS: LEVOTHYROXINE 112 MCG TABLET PO SCH (05:56)
[2018-06-28] MEDS: LEVOTHYROXINE 25 MCG TABLET PO SCH (05:56)
--- NOTE | 2018-06-28 06:00 | NUR ---
DR. HERNANDEZ DOING ROUNDS. STATED IF PT PASSED BEDSIDE SWALLOW EXAM TO ATTEMPT TO DC NG TUBE.
[2018-06-28] MEDS: FLUTICASONE PROPIONATE 50MCG/SPRAY 16 GM BOTTLE NS SCH (09:00)
[2018-06-28] MEDS: POLYETHYLENE GLYCOL 3350 17 GM POWD.PACK PO SCH (09:00)
[2018-06-28] MEDS: LACTULOSE 20 GM/30 ML UDCUP PO SCH ×2 (09:00→20:35)
[2018-06-28] MEDS: SYMBICORT 160-4.5 MCG INHALER IH SCH ×2 (09:00→21:00)
[2018-06-28] MEDS: DESVENLAFAXINE SUCCINATE 100 MG PO SCH (09:00)
[2018-06-28] MEDS: APIXABAN 5 MG TABLET PO SCH (09:00)
--- NOTE | 2018-06-28 09:00 | NUR ---
DYSPHAGIA RE-EVAL COMPLETED. +S/S OF ASPIRATION WITH ALL LIQUID TEXTURES. RECOMMEND MBSS AND NPO, SHORT TERM ALTERNATE MEANS OF NUTRITION/HYDRATION. PATIENT INFORMATION: Pt IS A 68 YEAR OLD FEMALE REFERRED FOR A BEDSIDE DYSPHAGIA RE-EVALUATION SECONDARY TO IMPROVED ALERTNESS AND COOPERATION. Pt COOPERATIVE DURING TH EVALUATION. Pt REQUESTING P.O. AT THIS TIME. Pt WITH HOARSENESS WHEN SPEAKING. Pt CURRENTLY ADMITTED SECONDARY TO SURGICAL INTERVENTION (SPACER PLACEMENT TO POSTOPERATIVE STATUS). PT HAS A PAST MEDICAL HISTORY SIGNIFICANT FOR MORBID OBESITY, HYPOVENTILATION SYNDROME, SEVERE PERSISTENT ASTHMA, HISTORY OF TRACHEOSTOMY FOR RESPIRATORY FAILURE (DECANNULATED), LOWER LUMBAR SPINE WITH SPINAL STENOSIS WITH PREVIOUS SURGERY, SEVERE ANXIETY, DEPRESSION. Pt WAS EXTUBATED ON 06/25/2018 AND WAS DIFFICULT TO WEEN AFTER THE SURGERY. Pt COOPERATIVE DURING THE EVALUATION. EVALUATION: Pt PRESENTS WITH MODERATE-SEVERE PHARYNGEAL DYSPHAGIA CAUSED BY DECREASED TONGUE BASE RETRACTION, DELAYED PHARYNGEAL RESPONSE TIME AND DECREASED LARYNGEAL ELEVATION/EXCURSION. EVIDENCED BY MULTIPLE SWALLOWS, AND +S/S OF ASPIRATION OF COUGH RESPONSE WITH ALL LIQUIDS (THIN, NECTAR, HONEY THICK LIQUIDS). Pt WITH IMPROVED LARYNGEAL ELEVATION/EXCURSION AND TOLERATING PUREED, PUDDING TRIALS WITH NO OVERT S/S OF ASPIRATION. RECOMMENDATIONS: 1. NPO, SHORT-TERM ALTERNATE MEANS OF NUTRITION/HYDRATION. 2. MBSS G-CODES SWALLOWING: [id number] Addendum: 06/28/[address] Amended: Links added.
--- NOTE | 2018-06-28 09:07 | NUR ---
DR. REDMOND IN ROOM SPEAKING WITH PT. AND EXPLAINING PLAN OF CARE. QUESTIONS ANSWERED BY DR. REDMOND.
--- NOTE | 2018-06-28 09:14 | NUR ---
DR. REDMOND SPEAKING WITH DR. HERNANDEZ VIA TELEPHONE RE:PT.'S MEDICATION REGIMEN AND LABS WELL PLAN OF CARE.
--- NOTE | 2018-06-28 09:43 | NUR ---
TO RADIOLOGY VIA BED FOR MBSS.
[2018-06-28 09:54] LABS: HEMATOCRIT 30.6 % (36-48); MEAN CORPUSCULAR HEMOGLOBIN 30.3 pg (27.0-33.0); MEAN CORPUSCULAR HGB CONC 33.2 g/dL (32.0-36.0); MEAN CORPUSCULAR VOLUME 91.4 fL (79-99); NUCLEATED RED BLOOD CELLS 0.1 % (0.0-0.19); PLATELET COUNT (AUTO) 57 K/uL (130-400); RED BLOOD CELL COUNT(AUTO) 3.34 MIL/uL (4.00-5.50); WHITE BLOOD COUNT (AUTO) 4.2 K/uL (4.8-10.8)
--- NOTE | 2018-06-28 10:00 | NUR ---
MBSS COMPLETED. +S/S OF ASPIRATION THIN LIQUIDS, MIXED TEXTURE, HONEY-THICK LIQUIDS VIA TSP, SHALLOW PENETRATION WITH NECTAR-THICK LIQUIDS. RECOMMEND MECHANICAL SOFT/CHOPPED, PUDDING-THICK LIQUIDS; PILLS CRUSHED WITH APPLESAUCE. NO MIXED TEXTURES. PATIENT INFORMATION: Pt IS A 68 YEAR OLD FEMALE REFERRED FOR AN MBSS SECONDARY TO IMPROVED ALERTNESS AND COOPERATION WITH DYSPHAGIA PRESENT AT THIS TIME. Pt COOPERATIVE DURING THE MBSS. Pt REQUESTING P.O. AT THIS TIME. Pt WITH HOARSENESS WHEN SPEAKING. Pt CURRENTLY ADMITTED SECONDARY TO SURGICAL INTERVENTION (SPACER PLACEMENT TO POSTOPERATIVE STATUS). PT HAS A PAST MEDICAL HISTORY SIGNIFICANT FOR MORBID OBESITY, HYPOVENTILATION SYNDROME, SEVERE PERSISTENT ASTHMA, HISTORY OF TRACHEOSTOMY FOR RESPIRATORY FAILURE (DECANNULATED), LOWER LUMBAR SPINE WITH SPINAL STENOSIS WITH PREVIOUS SURGERY, SEVERE ANXIETY, DEPRESSION. Pt WAS EXTUBATED ON 06/25/2018 AND WAS DIFFICULT TO WEEN AFTER THE SURGERY. Pt COOPERATIVE DURING THE EVALUATION. MBSS INTERPRETATION: Pt PRESENTS WITH MILD ORAL AND MODERATE-SEVERE PHARYNGEAL DYSPHAGIA CAUSED BY DECREASED ORAL MOTOR COORDINATION, DECREASED TONGUE BASE RETRACTION, DELAYED PHARYNGEAL RESPONSE TIME AND DECREASED HYO-LARYNGEAL APPROXIMATION,DECREASED PHARYNGEAL STRIPPING, EVIDENCED BY DECREASED ROTARY MOTION DURING MASTICATION, INCREASED MASTICATION TIME, MULTIPLE SWALLOWS, POOLING IN THE VALLECUL[place], RESULTING IN CELIO ASPIRATION WITH THIN LIQUIDS VIA TSP WITH COUGH RESPONSE, ASPIRATION WITH MIXED AND HONEY-THICK LIQUIDS VIA TSP (SILENT), SHALLOW PENETRATION WITH HONEY-THICK LIQUIDS WITH CHIN TUCK, AND SHALLOW PENETRATION WITH NECTAR-THICK LIQUIDS. TRIALS: 1. TSP PUREED: GOOD 2. TSP PUDDING: GOOD 3. TSP MIXED: SILENT ASPIRATION 4. TSP HONEY-THICK LIQUIDS: GOOD 5. TSP HONEY-THICK LIQUIDS: SILENT ASPIRATION 6. TSP HONEY-THICK LIQUIDS VIA CHIN TUCK: SHALLOW PENETRATION 7. TSP NECTAR-THICK LIQUIDS: SHALLOW PENETRATION 8. TSP THIN LIQUIDS: CELIO SILENT ASPIRATION RECOMMENDATIONS: 1. MECHANICAL SOFT/CHOPPED, PUDDING-THICK LIQUIDS, PILLS CRUSHED WITH APPLESAUCE. 2. COMPENSATORY STRATEGIES: *SEATED AT 90 DEGREES *SLOW RATE *NO MIXED TEXTURE *SMALL BITES AND SIPS 3. CONTINUE PLAN OF CARE ESTABLISHED DURING INITIAL EVALUATION. ADDED GOALS: STG1: Pt WILL COMPLETE THERAPEUTIC TRIALS OF HONEY-THICK LIQUIDS VIA TSP USING CHIN TUCK WITH NO OVERT S/S OF ASPIRATION. STG2: PT WILL TOLERATE P.O. OF MECHANICAL SOFT/CHOPPED, PUDDING-THICK LIQUIDS FOR ALL MEALS AND SNACKS WITH NO S/S OF ASPIRATION. G-CODES SWALLOWING: [id number] Addendum: 06/28/18 at 1137 by MELONIE HARDWICK, SPT ST Amended: Links added.
--- NOTE | 2018-06-28 10:15 | NUR ---
RETURNED TO ROOM VIA BED. WITHOUT NGT. NO DISTRESS NOTED. CALL LIGHT WITHIN REACH.
[2018-06-28] MEDS: DIGOXIN 125 MCG TABLET PO SCH (12:44)
[2018-06-28] MEDS: MAGNESIUM OXIDE 400 MG TABLET PO SCH (12:44)
[2018-06-28] MEDS: LOSARTAN 100 MG TABLET PO SCH (12:44)
[2018-06-28] MEDS: FUROSEMIDE 40 MG TABLET PO SCH ×2 (12:44→20:35)
[2018-06-28] MEDS: SOTALOL HCL 80 MG TABLET PO SCH ×2 (12:44→20:35)
[2018-06-28] MEDS: MONTELUKAST SODIUM 10 MG TAB PO SCH (12:45)
[2018-06-28] MEDS: FOLIC ACID 1 MG TABLET PO SCH (12:45)
[2018-06-28] MEDS: METHYLPREDNISOLONE SOD SUCC 40MG/ML 1ML IVP SCH ×2 (12:45→20:34)
[2018-06-28] MEDS: FAMOTIDINE 20MG TAB 20 MG TAB PO SCH ×2 (12:45→20:34)
--- NOTE | 2018-06-28 13:30 | NUR ---
REPOSITIONED IN BED FOR COMFORT. CALL LIGHT WITHIN REACH. BED LOW, SIDE RAILS UP X3. ROOM DOOR OPEN.
--- NOTE | 2018-06-28 13:48 | NUR ---
RAJNI PLAN VISITED WITH PATIENT. DR. REDMOND SPOKE TO PATIENT. NOW OKAY TO GO TO [facility]. TESS SIGNED. INFO SENT. REP WILL VISIT. PATIENT WILL NEED EMS FOR TRANSPORT. Addendum: 06/28/18 at 1349 by NURA WHITING RN CM Amended: Links added.
[2018-06-28] MEDS: ARIPIPRAZOLE 5 MG TABLET PO SCH (20:34)
[2018-06-28] MEDS: CLONAZEPAM 0.5 MG TABLET PO PRN (20:37)
--- NOTE | 2018-06-28 22:00 | NUR ---
DRESSING CHANGED PER ORDERS. INCISION DRY AND INTACT, NO DRAINAGE OR SWELLING NOTED. BRUISING NOTED. FRANCA INTACT. PATIENT REQUESTED TO TURN, TURNED TO LEFT SIDE AND PATIENT REQUESTED TO BE TURNED ON BACK. PATIENT THEN TURNED TO BACK. CALL IQBAL WITHIN REACH.
[2018-06-29] MEDS: FLUTICASONE PROPIONATE 50MCG/SPRAY 16 GM BOTTLE NS SCH ×3 (00:03→21:00)
[2018-06-29] MEDS: DILTIAZEM HCL 60 MG TABLET PO SCH ×4 (00:04→17:10)
[2018-06-29] MEDS: IPRATROPIUM/ALBUTEROL SULFATE 3 ML SOLUTION IH SCH ×6 (01:45→22:03)
[2018-06-29 03:29] VITALS: BP 134/58
[2018-06-29 04:21] LABS: CREATININE 0.8 mg/dL (0.5-1.5); POTASSIUM 3.2 mmol/L (3.5-5.1)
[2018-06-29 04:22] LABS: HEMATOCRIT 27.6 % (36-48); MEAN CORPUSCULAR HEMOGLOBIN 30.1 pg (27.0-33.0); MEAN CORPUSCULAR HGB CONC 33.3 g/dL (32.0-36.0); MEAN CORPUSCULAR VOLUME 90.4 fL (79-99); NUCLEATED RED BLOOD CELLS 0.1 % (0.0-0.19); PLATELET COUNT (AUTO) 53 K/uL (130-400); RED BLOOD CELL COUNT(AUTO) 3.06 MIL/uL (4.00-5.50)
[2018-06-29] MEDS: LEVOTHYROXINE 112 MCG TABLET PO SCH (06:29)
[2018-06-29] MEDS: LEVOTHYROXINE 25 MCG TABLET PO SCH (06:29)
[2018-06-29] MEDS: INSULIN HUMULIN R 100 UNIT/ML 3ML SQ SCH ×4 (06:31→21:30)
[2018-06-29 07:00] VITALS: BP 140/56
--- NOTE | 2018-06-29 07:51 | NUR ---
Patricia RUIZ, RAIL TRANSPORTATION OPERATOR IN ROOM SPEAKING WITH PT. RE:PLAN OF CARE; QUESTIONS ANSWERED BY RAIL TRANSPORTATION OPERATOR.
[2018-06-29] MEDS: LACTULOSE 20 GM/30 ML UDCUP PO SCH ×2 (08:44→21:16)
[2018-06-29] MEDS: POLYETHYLENE GLYCOL 3350 17 GM POWD.PACK PO SCH (08:44)
[2018-06-29] MEDS: DESVENLAFAXINE SUCCINATE 100 MG PO SCH (09:00)
[2018-06-29] MEDS: SYMBICORT 160-4.5 MCG INHALER IH SCH ×2 (09:00→19:58)
[2018-06-29] MEDS ORDERED: METHYLPREDNISOLONE SOD SUCC 40MG/ML 1ML IVP SCH (09:00)
--- NOTE | 2018-06-29 09:30 | NUR ---
DYSPHAGIA RE-EVAL COMPLETED. +S/S OF ASPIRATION WITH HONEY-THICK LIQUID.S RECOMMEND CONTINUED MECHANICAL SOFT/CHOPPED, PUDDING-THICK LIQUIDS; PILLS CRUSHED WITH APPLESAUCE. PATIENT INFORMATION: Pt IS A 68 YEAR OLD FEMALE REFERRED FOR A BEDSIDE DYSPHAGIA RE-EVALUATION SECONDARY TO PRIMARY REQUESTING RE-EVAL. Pt COOPERATIVE DURING TH EVALUATION. Pt REQUESTING P.O. AT THIS TIME. Pt WITH HOARSENESS WHEN SPEAKING. Pt CURRENTLY ADMITTED SECONDARY TO SURGICAL INTERVENTION (SPACER PLACEMENT TO POSTOPERATIVE STATUS). PT HAS A PAST MEDICAL HISTORY SIGNIFICANT FOR MORBID OBESITY, HYPOVENTILATION SYNDROME, SEVERE PERSISTENT ASTHMA, HISTORY OF TRACHEOSTOMY FOR RESPIRATORY FAILURE (DECANNULATED), LOWER LUMBAR SPINE WITH SPINAL STENOSIS WITH PREVIOUS SURGERY, SEVERE ANXIETY, DEPRESSION. Pt WAS EXTUBATED ON 06/25/2018 AND WAS DIFFICULT TO WEEN AFTER THE SURGERY. Pt COOPERATIVE DURING THE EVALUATION. EVALUATION: Pt PRESENTS WITH MODERATE-SEVERE PHARYNGEAL DYSPHAGIA CAUSED BY DECREASED TONGUE BASE RETRACTION, DELAYED PHARYNGEAL RESPONSE TIME AND DECREASED LARYNGEAL ELEVATION/EXCURSION. EVIDENCED BY MULTIPLE SWALLOWS, AND +S/S OF ASPIRATION OF COUGH RESPONSE WITH HONEY THICK LIQUIDS. Pt WITH NO OVERT S/S OF ASPIRATION WITH PUDDING-THICK LIQUIDS AND SOLIDS. RECOMMENDATIONS: 1.MECHANICAL SOFT/CHOPPED, PUDDING-THICK LIQUIDS; PILLS CRUSHED WITH APPLESAUCE. 2. COMPENSATORY STRATEGIES: *SEATED AT 90 DEGREES *LIQUIDS VIA TSP *SLOW RATE *SMALL BITES AND SIPS 3. CONTINUE WITH INITIAL PLAN OF CARE, SKILLED SPEECH THERAPY 2-3 TIMES A WEEK. UPON ARRIVAL TO THE ROOM Pt WITH METAL TUMBLER WITH STRAW (EMPTY AND NOT IN USE). Pt WITH WATER BOTTLES AND JUICE BOTTLES (NOT WITHIN REACH) BY SINK THAT WERE BROUGHT IN BY HER SON. Pt REPORTS THAT SHE GETS VERY THIRSTY. TANK WORKER WROTE DIET RESTRICTIONS AND RECOMMENDATIONS ON Pt'S WHITE BOARDS. TANK WORKER EDUCATED Pt, NURSE AND OUTREACH AND EDUCATION SOCIAL WORKER ON HOW TO REACH PUDDING-THICK LIQUIDS. NURSE JUN REPORTS THAT Pt WAS BROUGHT A CARTON OF MILK WITH HER OATMEAL (NURSING THICKENED LIQUIDS). TANK WORKER SPOKE TO ORGANIZATIONAL DEVELOPMENT DIRECTORSHANNON SCHREIBER ABOUT THICKENING LIQUIDS PRIOR TO BRINGING THEM TO THE ROOM. PLEASE NOTE THAT THICKENER IS PROVIDED WITH ALL TRAYS. ORGANIZATIONAL DEVELOPMENT DIRECTOR STATED THAT SHE WILL ENSURE THEY ARE TAKEN THICKEN PRIOR TO SENDING THE TRAY. WHEN THE Pt'S DIET WAS UPGRADED YESTERDAY, TANK WORKER SPOKE TO REBECCA ABOUT CHANGE TO PUDDING-THICK LIQUIDS AND SHE AGREED TO COORDINATE WITH STAFF. G-CODES SWALLOWING: [id number] Addendum: 06/29/18 at 1117 by MELONIE HARDWICK, [facility] Amended: Links added.
[2018-06-29] MEDS: LOSARTAN 100 MG TABLET PO SCH (10:19)
[2018-06-29] MEDS: FUROSEMIDE 40 MG TABLET PO SCH ×2 (10:20→21:16)
[2018-06-29] MEDS: SOTALOL HCL 80 MG TABLET PO SCH ×2 (10:20→21:16)
[2018-06-29] MEDS: DIGOXIN 125 MCG TABLET PO SCH (10:20)
[2018-06-29] MEDS: FAMOTIDINE 20MG TAB 20 MG TAB PO SCH ×2 (10:20→21:16)
[2018-06-29] MEDS: MONTELUKAST SODIUM 10 MG TAB PO SCH (10:21)
[2018-06-29] MEDS: FOLIC ACID 1 MG TABLET PO SCH (10:21)
[2018-06-29] MEDS: ERGOCALCIFEROL (VITAMIN D2) 50,000 UNIT CAPSULE PO SCH (10:22)
--- NOTE | 2018-06-29 11:00 | NUR ---
REPORT TO Malina BROWN RN.
--- NOTE | 2018-06-29 11:45 | NUR ---
TRANSFERRED TO ROOM 404 VIA BED ACCOMPANIED BY Jessica SIMON RN AND Patricia PATTON RN.
--- NOTE | 2018-06-29 18:16 | NUR ---
CM Note: [facility] pending acceptance CM met with pt discussed MD recommendations for short term rehab, made aware [facility] has denied. Pt agreeable, TESS signed for [facility]. Faxed order, clinicals, and pasrr. Spoke to Claudine will come eval pt in AM. Pt pending acceptance. EMS filled out pending to be faxed w/current date, primary nurse to call [facility] once pt ready to DC. Primary nurse aware. CM to cont to follow up.
[2018-06-29 19:14] VITALS: BP 127/47
[2018-06-29] MEDS ORDERED: INSULIN GLARGINE 100 UNITS/ML 10 ML VIAL SQ SCH (21:00)
[2018-06-29] MEDS ORDERED: INSULIN HUMULIN R 100 UNIT/ML 3ML SQ SCH (21:00)
[2018-06-29] MEDS: ARIPIPRAZOLE 5 MG TABLET PO SCH (21:16)
[2018-06-29] MEDS: CLONAZEPAM 0.5 MG TABLET PO PRN (21:24)
[2018-06-29] MEDS ORDERED: PHARMACY COMMUNICATION MISC SCH (21:45)
[2018-06-29 23:23] VITALS: BP 108/52
[2018-06-30] MEDS: IPRATROPIUM/ALBUTEROL SULFATE 3 ML SOLUTION IH SCH ×5 (01:36→18:03)
[2018-06-30 03:43] VITALS: BP 116/57
[2018-06-30] MEDS: LEVOTHYROXINE 112 MCG TABLET PO SCH (04:53)
[2018-06-30] MEDS: LEVOTHYROXINE 25 MCG TABLET PO SCH (04:53)
[2018-06-30] MEDS: HYDROMORPHONE 1 MG/1 ML AMP IVP PRN ×2 (04:53→09:28)
[2018-06-30] MEDS: DILTIAZEM HCL 60 MG TABLET PO SCH ×4 (06:00→18:06)
[2018-06-30] MEDS: INSULIN HUMULIN R 100 UNIT/ML 3ML SQ SCH ×4 (06:22→22:37)
[2018-06-30 08:00] VITALS: BP 126/48
[2018-06-30] MEDS: SYMBICORT 160-4.5 MCG INHALER IH SCH ×2 (09:00→19:46)
[2018-06-30] MEDS: DESVENLAFAXINE SUCCINATE 100 MG PO SCH (09:00)
[2018-06-30] MEDS ORDERED: PREDNISONE 20 MG TABLET PO SCH (09:00)
[2018-06-30] MEDS: MONTELUKAST SODIUM 10 MG TAB PO SCH (09:28)
[2018-06-30] MEDS: FOLIC ACID 1 MG TABLET PO SCH (09:29)
[2018-06-30] MEDS: SOTALOL HCL 80 MG TABLET PO SCH ×2 (09:29→22:14)
[2018-06-30] MEDS: LOSARTAN 100 MG TABLET PO SCH (09:29)
[2018-06-30] MEDS: FAMOTIDINE 20MG TAB 20 MG TAB PO SCH ×2 (09:29→22:14)
[2018-06-30] MEDS: FUROSEMIDE 40 MG TABLET PO SCH ×2 (09:29→22:14)
[2018-06-30] MEDS: DIGOXIN 125 MCG TABLET PO SCH (09:29)
[2018-06-30] MEDS: FLUTICASONE PROPIONATE 50MCG/SPRAY 16 GM BOTTLE NS SCH (09:30)
[2018-06-30] MEDS: POLYETHYLENE GLYCOL 3350 17 GM POWD.PACK PO SCH (09:30)
[2018-06-30] MEDS: LACTULOSE 20 GM/30 ML UDCUP PO SCH ×2 (09:30→22:14)
--- NOTE | 2018-06-30 10:00 | NUR ---
MAURICIO Note: [facility] acceptance Spoke to Claudine Norman. pt has acceptance. EMS arranged and faxed, primary nurse to call [facility] once pt ready to DC. Primary nurse aware. CM to cont to follow up.
--- NOTE | 2018-06-30 10:10 | NUR ---
SWALLOW TREATMENT COMPLETED. S: Pt SEATED AT 90 IN CHAIR. Pt IN GOOD SPIRITS. Pt COUGHING AT BASELINE. PLEASE NOTE Pt WITH INHALER ON TABLE. Pt COOPERATIVE DURING THE SESSION. NURSE HARMON IN ROOM PROVIDED PILLS AT THIS TIME. PLEASE NOTE Pt'S LIQUID MEDICATIONS WERE THICKENED TO PUDDING THICK LIQUIDS BY INVENTORY WORKER. O: Pt CURRENTLY TARGETING SWALLOWING GOALS. RESULTS ARE FOLLOWS: *Pt WILL TOLERATE THERAPEUTIC TRIALS OF SOLIDS AND HONEY-THICK LIQUIDS VIA TSP: Pt PRESENTED WITH 1 TRIAL OF SOLID WITH +S/S OF ASPIRATION OF COUGH RESPONSE. HONEY-THICK LIQUID TRIALS X2 VIA TSP WITH NO OVERT S/S OF ASPIRATION. *Pt WILL TOLERATE PUDDING THICK LIQUIDS AND MECHANICAL SOFT/CHOPPED DIET FOR ALL MEALS AND SNACKS: Pt WITH NO OVERT S/S OF ASPIRATION WITH PUDDING TRIALS PROVIDED BY INVENTORY WORKER. PLEASE NOTE Pt WAS PROVIDED WITH PILLS WHOLE WITH PUDDING-THICK LIQUIDS WITH +S/S OF ASPIRATION WITH COUGH RESPONSE. *Pt WILL COMPLETE LARYNGEAL ELEVATION/EXCURSION WITH 80% ACCURACY: 50% ACCURACY GIVEN MAX CUES. *Pt COMPLETED EFFORTFUL SWALLOW AND BALDO MANEUVER WITH 70% ACCURACY GIVEN MAX CUES. *Pt COMPLETED TONGUE BASE RETRACTION EXERCISES WITH 70% ACCURACY: 60% ACCURACY GIVEN MAX CUES. A: Pt WITH CONTINUED HOARSED VOCAL QUALITY AT THIS TIME. Pt COMPLETED DIAPHRAGMATIC BREATHING WITH ADEQUATE BREATH SUPPORT. PT COOPERATIVE WITH ALL ACTIVITIES AND HIGHLY MOTIVATED AT THIS TIME. Pt WITH IMPROVED CONTROL OVER SWALLOW INITIATION. P: RECOMMEND CONTINUED SKILLED SPEECH THERAPY 3-5XWEEK TOLERATED BY Pt. PLEASE NOTE Pt IS A GREAT CANDIDATE FOR THERAPEUTIC INTERVENTION SHE IS HIGHLY MOTIVATED TO GO HOME. RECOMMENDED DIET: MECHANICAL SOFT/CHOPPED, PUDDING-THICK LIQUIDS; PILLS WHOLE WITH PUDDING. COMPENSATORY STRATEGIES: -NO MIXED TEXTURE, SMALL BITES AND SIPS, SEATED AT 90 DEGREES, INVENTORY WORKER COORDINATED CARE WITH NURSE HARMON. Addendum: 06/30/18 at 1027 by MELONIE HARDWICK [facility] Amended: Links added.
[2018-06-30 11:00] VITALS: BP 120/59
[2018-06-30] MEDS: POTASSIUM CHLORIDE 10% ELIXIR 20 MEQ/15 ML UDCUP PO PRN ×2 (12:07→16:12)
[2018-06-30] MEDS ORDERED: APIX2.5T PO (12:44)
[2018-06-30] MEDS ORDERED: TRAM1TAB PO (12:44)
[2018-06-30 16:00] VITALS: BP 130/58
--- NOTE | 2018-06-30 16:00 | NUR ---
ELEVATED BLOOD GLUCOSE FINGER STICK BLOOD GLUCOSE NOTED TO BE 431. STAT LAB GLUCOSE ORDERED, PAGED. 20 UNITS OF REGULAR INSULIN TO BE GIVEN PER SLIDING SCALE. NO NOTED SOB OR DISTRESS. PENDING DR. MURCIA CALL BACK FOR FURTHER ORDERS.
--- NOTE | 2018-06-30 16:37 | NUR ---
RECHECK BLOOD GLUCOSE PRIOR FINGER STICK BLOOD GLUCOSE OF 431. 20 UNITS OF REGULAR INSULIN GIVEN PER SLIDING SCALE. PER DR. MURCIA, RECHECK BLOOD SUGAR IN AN HR AND CALL FOR FURTHER ORDERS. FINGER STICK BLOOD GLUCOSE NOW OF 444. PAGED, PENDING CALL BACK. NO NOTED SOB OR DISTRESS IN PATIENT, WILL MONITOR TO CLOSELY.
--- NOTE | 2018-06-30 18:00 | NUR ---
DRESSING CHANGED INCISION TO RIGHT KNEE DRY AND INTACT, FRANCA IN PLACE. PAINTED WITH BETADINE, APPLIED GAUZE AND SECURED WITH TAPE. PT TOLERATED DRESSING CHANGE WELL.
[2018-06-30] MEDS ORDERED: INSULIN HUMULIN R 100 UNIT/ML 3ML SQ SCH (18:15)
--- NOTE | 2018-06-30 18:20 | NUR ---
HELD DISCHARGE/MDS MADE AWARE PER DR. MURCIA, REQUIRES ENT FOR POSSIBLE VOCAL CORD PARALYSIS. ENT FANCY WIRE DRAWER DOES NOT HAVE PRIVILEGES AT THIS HOSPITAL. DR. MURCIA MADE AWARE, PER MD, WILL NOT DISCHARGE UNTIL SEEN BY ENT OR IF VOCAL CORDS IMPROVE. PENDING ENT CONSULT FOR NOW. WILL CONTINUE TO MONITOR PT CLOSELY. CONTINUES ON PUDDING THICK LIQUIDS AND HOB ELEVATED WHEN EATING. DR. REDMOND, DR. HERNANDEZ, AND DR. CONTRERAS MADE AWARE OF DISCHARGE ON HOLD.
[2018-06-30 20:00] VITALS: BP 159/67
[2018-06-30] MEDS ORDERED: INSULIN GLARGINE 100 UNITS/ML 10 ML VIAL SQ SCH (21:00)
[2018-06-30] MEDS: ARIPIPRAZOLE 5 MG TABLET PO SCH (22:14)
[2018-06-30] MEDS: CLONAZEPAM 0.5 MG TABLET PO PRN (22:14)
[2018-06-30] MEDS: ALBUTEROL SULFATE 0.083% 2.5 MG/3 ML INH IH PRN (23:08)
[2018-06-30 23:42] VITALS: BP 163/71
[2018-07-01] MEDS: DILTIAZEM HCL 60 MG TABLET PO SCH ×4 (00:04→18:00)
[2018-07-01 04:00] VITALS: BP 135/63
[2018-07-01] MEDS: IPRATROPIUM/ALBUTEROL SULFATE 3 ML SOLUTION IH SCH ×6 (05:10→22:00)
[2018-07-01 05:12] LABS: HEMATOCRIT 32.2 % (36-48); MEAN CORPUSCULAR HEMOGLOBIN 30.8 pg (27.0-33.0); MEAN CORPUSCULAR HGB CONC 34.8 g/dL (32.0-36.0); MEAN CORPUSCULAR VOLUME 88.4 fL (79-99); NUCLEATED RED BLOOD CELLS 0.1 % (0.0-0.19); PLATELET COUNT (AUTO) 79 K/uL (130-400); RED BLOOD CELL COUNT(AUTO) 3.64 MIL/uL (4.00-5.50); RED CELL DISTRIBUTION WIDTH 12.8 % (11.0-15.5)
[2018-07-01 05:41] LABS: CREATININE 0.6 mg/dL (0.5-1.5)
[2018-07-01 05:54] LABS: POTASSIUM 2.8 mmol/L (3.5-5.1)
[2018-07-01] MEDS: INSULIN HUMULIN R 100 UNIT/ML 3ML SQ SCH ×7 (06:08→21:00)
[2018-07-01] MEDS: LEVOTHYROXINE 112 MCG TABLET PO SCH (06:51)
[2018-07-01] MEDS: LEVOTHYROXINE 25 MCG TABLET PO SCH (06:51)
[2018-07-01] MEDS: POTASSIUM CHLORIDE 20 MEQ ERTAB PO PRN ×4 (06:52→16:37)
[2018-07-01 08:00] VITALS: BP 124/58
[2018-07-01] MEDS: POLYETHYLENE GLYCOL 3350 17 GM POWD.PACK PO SCH (08:59)
[2018-07-01] MEDS: LACTULOSE 20 GM/30 ML UDCUP PO SCH ×2 (09:00→20:32)
[2018-07-01] MEDS: FOLIC ACID 1 MG TABLET PO SCH (09:00)
[2018-07-01] MEDS ORDERED: PREDNISONE 20 MG TABLET PO SCH (09:00)
[2018-07-01] MEDS: SOTALOL HCL 80 MG TABLET PO SCH ×2 (09:00→20:32)
[2018-07-01] MEDS: DESVENLAFAXINE SUCCINATE 100 MG PO SCH (09:00)
[2018-07-01] MEDS: MONTELUKAST SODIUM 10 MG TAB PO SCH (09:00)
[2018-07-01] MEDS: FAMOTIDINE 20MG TAB 20 MG TAB PO SCH ×2 (09:00→20:31)
[2018-07-01] MEDS: DIGOXIN 125 MCG TABLET PO SCH (09:00)
[2018-07-01] MEDS: FUROSEMIDE 40 MG TABLET PO SCH ×2 (09:00→20:32)
[2018-07-01] MEDS: APIXABAN 2.5 MG TABLET PO SCH (09:00)
[2018-07-01] MEDS: LOSARTAN 100 MG TABLET PO SCH (09:01)
[2018-07-01] MEDS: INSULIN GLARGINE 100 UNITS/ML 10 ML VIAL SQ SCH ×2 (09:16→21:00)
[2018-07-01 11:00] VITALS: BP 118/82
[2018-07-01] MEDS: PREDNISONE 10 MG TABLET PO SCH (11:39)
[2018-07-01] MEDS: HYDROMORPHONE 1 MG/1 ML AMP IVP PRN (12:11)
[2018-07-01 16:00] VITALS: BP 122/51
--- NOTE | 2018-07-01 17:00 | NUR ---
DRESSING CHANGED INCISION TO RIGHT KNEE DRY AND INTACT, FRANCA IN PLACE. PAINTED WITH BETADINE, APPLIED GAUZE AND SECURED WITH TAPE. PT TOLERATED DRESSING CHANGE WELL.
[2018-07-01 20:00] VITALS: BP 122/73
[2018-07-01] MEDS: CLONAZEPAM 0.5 MG TABLET PO PRN (20:32)
[2018-07-01] MEDS: ARIPIPRAZOLE 5 MG TABLET PO SCH (20:32)
[2018-07-01] MEDS: BUDESONIDE 0.5 MG/2 ML INH IH SCH (22:00)
[2018-07-01 23:51] VITALS: BP 104/47
[2018-07-02] MEDS: IPRATROPIUM/ALBUTEROL SULFATE 3 ML SOLUTION IH SCH ×6 (02:01→21:35)
[2018-07-02 04:00] VITALS: BP 110/55
[2018-07-02] MEDS: INSULIN HUMULIN R 100 UNIT/ML 3ML SQ SCH ×9 (04:45→21:00)
[2018-07-02] MEDS: DILTIAZEM HCL 60 MG TABLET PO SCH ×4 (04:51→18:00)
[2018-07-02 05:21] LABS: BASOPHILS % (AUTO) 0.5 % (0.0-5.0); EOSINOPHILS % (AUTO) 2.9 % (0.0-8.0); HEMATOCRIT 35.7 % (36-48); LYMPHOCYTES % (AUTO) 13.6 % (21.0-51.0); MEAN CORPUSCULAR HGB CONC 33.9 g/dL (32.0-36.0); MEAN CORPUSCULAR VOLUME 88.5 fL (79-99); MONOCYTES % (AUTO) 11.6 % (3.0-13.0); NEUTROPHILS % (AUTO) 71.4 % (40.0-77.0); NUCLEATED RED BLOOD CELLS 0.1 % (0.0-0.19); PLATELET COUNT (AUTO) 124 K/uL (130-400); RED BLOOD CELL COUNT(AUTO) 4.03 MIL/uL (4.00-5.50); RED CELL DISTRIBUTION WIDTH 13.3 % (11.0-15.5); WHITE BLOOD COUNT (AUTO) 9.7 K/uL (4.8-10.8)
[2018-07-02] MEDS: LEVOTHYROXINE 25 MCG TABLET PO SCH (05:23)
[2018-07-02] MEDS: LEVOTHYROXINE 112 MCG TABLET PO SCH (05:23)
[2018-07-02 05:38] LABS: ALBUMIN 2.7 g/dL (3.5-5.0); BILIRUBIN,TOTAL 1.3 mg/dL (0.2-1.0); CREATININE 0.8 mg/dL (0.5-1.5); MAGNESIUM 2.2 mg/dL (1.80-2.40); PHOSPHORUS 3.1 mg/dL (2.5-4.9); POTASSIUM 3.3 mmol/L (3.5-5.1); TOTAL PROTEIN, SERUM 6.4 g/dL (6.0-8.3)
[2018-07-02] MEDS: BUDESONIDE 0.5 MG/2 ML INH IH SCH ×2 (06:35→18:21)
[2018-07-02] MEDS: POTASSIUM CHLORIDE 10% ELIXIR 20 MEQ/15 ML UDCUP PO PRN ×2 (06:38→12:50)
[2018-07-02] MEDS: INSULIN GLARGINE 100 UNITS/ML 10 ML VIAL SQ SCH ×2 (06:46→22:07)
[2018-07-02 07:30] VITALS: BP 116/56
[2018-07-02] MEDS: LACTULOSE 20 GM/30 ML UDCUP PO SCH (09:00)
[2018-07-02] MEDS: LOSARTAN 100 MG TABLET PO SCH (09:00)
[2018-07-02] MEDS: POLYETHYLENE GLYCOL 3350 17 GM POWD.PACK PO SCH (09:00)
[2018-07-02] MEDS: DESVENLAFAXINE SUCCINATE 100 MG PO SCH (09:00)
[2018-07-02] MEDS: MONTELUKAST SODIUM 10 MG TAB PO SCH (09:29)
[2018-07-02] MEDS: FUROSEMIDE 40 MG TABLET PO SCH ×2 (09:29→22:04)
[2018-07-02] MEDS: POTASSIUM CHLORIDE 20 MEQ ERTAB PO PRN ×2 (09:29→13:06)
[2018-07-02] MEDS: PREDNISONE 10 MG TABLET PO SCH (09:31)
[2018-07-02] MEDS: FOLIC ACID 1 MG TABLET PO SCH (09:31)
[2018-07-02] MEDS: FAMOTIDINE 20MG TAB 20 MG TAB PO SCH ×2 (09:31→22:04)
[2018-07-02] MEDS: APIXABAN 2.5 MG TABLET PO SCH (09:31)
[2018-07-02] MEDS: DIGOXIN 125 MCG TABLET PO SCH (09:31)
[2018-07-02] MEDS: SOTALOL HCL 80 MG TABLET PO SCH ×2 (09:32→22:04)
[2018-07-02 11:00] VITALS: BP 104/48
[2018-07-02] MEDS ORDERED: LACTULOSE 20 GM/30 ML UDCUP PO PRN (11:00)
--- NOTE | 2018-07-02 11:34 | NUR ---
HOARSE THROAT CONTINUE WITH HOARSE THROAT. PATIENT WHISPERS WHEN TALKING AND HAS FREQUENT THROAT CLEARING. PENDING ENT TO CONSULT WITH PATIENT. Addendum: 07/02/18 at 1143 by FAUSTINO LEE RN RN Amended: Links added.
[2018-07-02] MEDS: HYDROMORPHONE 1 MG/1 ML AMP IVP PRN (12:50)
[2018-07-02 16:00] VITALS: BP 112/57
--- NOTE | 2018-07-02 17:57 | NUR ---
DRESSING CHANGED DRESSING TO RIGHT KNEE CHANGED ORDERED BY DR. REDMOND. INCISION AND FRANCA ARE DRY AND INTACT. TOLERATED DRESSING WELL, WILL CONTINUE TO MONITOR.
[2018-07-02 20:00] VITALS: BP 135/68
[2018-07-02] MEDS: ARIPIPRAZOLE 5 MG TABLET PO SCH (22:04)
[2018-07-02] MEDS: CLONAZEPAM 0.5 MG TABLET PO PRN (22:06)
[2018-07-03] VITALS (7 sets, daily range): BP systolic 106–128; BP diastolic 53–95
[2018-07-03] MEDS: DILTIAZEM HCL 60 MG TABLET PO SCH ×5 (01:40→23:40)
[2018-07-03] MEDS: IPRATROPIUM/ALBUTEROL SULFATE 3 ML SOLUTION IH SCH ×6 (01:51→22:10)
[2018-07-03 04:44] LABS: BASOPHILS % (AUTO) 0.3 % (0.0-5.0); EOSINOPHILS % (AUTO) 3.1 % (0.0-8.0); HEMATOCRIT 33.6 % (36-48); LYMPHOCYTES % (AUTO) 14.3 % (21.0-51.0); MEAN CORPUSCULAR HEMOGLOBIN 30.6 pg (27.0-33.0); MEAN CORPUSCULAR HGB CONC 34.3 g/dL (32.0-36.0); MEAN CORPUSCULAR VOLUME 89.1 fL (79-99); MONOCYTES % (AUTO) 11.4 % (3.0-13.0); NEUTROPHILS % (AUTO) 70.9 % (40.0-77.0); NUCLEATED RED BLOOD CELLS 0.1 % (0.0-0.19); PLATELET COUNT (AUTO) 118 K/uL (130-400); RED BLOOD CELL COUNT(AUTO) 3.77 MIL/uL (4.00-5.50); RED CELL DISTRIBUTION WIDTH 13.4 % (11.0-15.5); WHITE BLOOD COUNT (AUTO) 9.9 K/uL (4.8-10.8)
[2018-07-03 04:53] LABS: CREATININE 0.9 mg/dL (0.5-1.5); MAGNESIUM 2.2 mg/dL (1.80-2.40); POTASSIUM 3.8 mmol/L (3.5-5.1)
[2018-07-03 04:58] LABS: B-TYPE NATRIURETIC PEPTIDE 55 pg/mL (0-100)
[2018-07-03] MEDS: BUDESONIDE 0.5 MG/2 ML INH IH SCH ×2 (06:27→19:33)
[2018-07-03] MEDS: LEVOTHYROXINE 112 MCG TABLET PO SCH (07:08)
[2018-07-03] MEDS: LEVOTHYROXINE 25 MCG TABLET PO SCH (07:08)
[2018-07-03] MEDS: INSULIN GLARGINE 100 UNITS/ML 10 ML VIAL SQ SCH ×2 (07:09→20:08)
[2018-07-03] MEDS: INSULIN HUMULIN R 100 UNIT/ML 3ML SQ SCH ×8 (07:14→20:09)
[2018-07-03] MEDS: DESVENLAFAXINE SUCCINATE 100 MG PO SCH (09:00)
[2018-07-03] MEDS: LOSARTAN 100 MG TABLET PO SCH (09:00)
[2018-07-03] MEDS: DIGOXIN 125 MCG TABLET PO SCH (09:00)
[2018-07-03] MEDS: SOTALOL HCL 80 MG TABLET PO SCH ×2 (09:00→19:59)
[2018-07-03] MEDS: HYDROMORPHONE 1 MG/1 ML AMP IVP PRN ×3 (09:09→23:45)
[2018-07-03] MEDS: FUROSEMIDE 40 MG TABLET PO SCH ×2 (10:21→19:59)
[2018-07-03] MEDS: FOLIC ACID 1 MG TABLET PO SCH (10:21)
[2018-07-03] MEDS: APIXABAN 2.5 MG TABLET PO SCH (10:21)
[2018-07-03] MEDS: MONTELUKAST SODIUM 10 MG TAB PO SCH (10:21)
[2018-07-03] MEDS: PREDNISONE 10 MG TABLET PO SCH (10:21)
[2018-07-03] MEDS: FAMOTIDINE 20MG TAB 20 MG TAB PO SCH ×2 (10:21→19:59)
--- NOTE | 2018-07-03 11:40 | NUR ---
RD follow up note Patient groggy at time of visit. Patient tolerating current diet regimen with no report of GI distress and fair PO intake at 75%. Patient LBM 07/01/18. Patient monitored labs: BUN 26, Glu 163, Ca 8.1, Alb 2.7. RD to continue to monitor. Please notify RD as nutritional concerns arise. Thank you. Addendum: 07/03/18 at [address] Amended: Links added.
--- NOTE | 2018-07-03 18:00 | NUR ---
REFUSING TO TURN ALLEVYN PATCH PLACED TO COCCYX AREA, THERE IS REDNESS PRESENT BUT NO BREAKDOWN, PT IS A&OX3, INFORMED PATIENT OF BENEFITS OF TURNING Q2H AND RISKS OF NONCOMPLIANCE BUT PATIENT CONTINUES TO REFUSE TO RE-POSITION SELF TO REDUCE RISK OF PRESSURE ULCER. CALL LIGHT WITHIN REACH.
[2018-07-03] MEDS: ARIPIPRAZOLE 5 MG TABLET PO SCH (19:59)
[2018-07-03] MEDS: CLONAZEPAM 0.5 MG TABLET PO PRN (19:59)
--- NOTE | 2018-07-03 23:33 | NUR ---
TURNING PATIENT STILL REFUSING TO BE TURNED IN BED EVEN AFTER TAUGHT ABOUT RISKS AND BENEFITS.
[2018-07-04] MEDS: IPRATROPIUM/ALBUTEROL SULFATE 3 ML SOLUTION IH SCH ×4 (01:10→13:48)
[2018-07-04] MEDS: HYDROMORPHONE 1 MG/1 ML AMP IVP PRN ×3 (03:40→09:32)
[2018-07-04 03:48] VITALS: BP 122/68
[2018-07-04 04:28] LABS: BASOPHILS % (AUTO) 0.3 % (0.0-5.0); EOSINOPHILS % (AUTO) 1.8 % (0.0-8.0); HEMATOCRIT 37.4 % (36-48); LYMPHOCYTES % (AUTO) 15.5 % (21.0-51.0); MEAN CORPUSCULAR HEMOGLOBIN 29.7 pg (27.0-33.0); MEAN CORPUSCULAR HGB CONC 33.2 g/dL (32.0-36.0); MEAN CORPUSCULAR VOLUME 89.5 fL (79-99); MONOCYTES % (AUTO) 9.2 % (3.0-13.0); NEUTROPHILS % (AUTO) 73.2 % (40.0-77.0); NUCLEATED RED BLOOD CELLS 0.2 % (0.0-0.19); PLATELET COUNT (AUTO) 115 K/uL (130-400); RED BLOOD CELL COUNT(AUTO) 4.18 MIL/uL (4.00-5.50); RED CELL DISTRIBUTION WIDTH 13.6 % (11.0-15.5)
[2018-07-04 04:29] LABS: CREATININE 0.8 mg/dL (0.5-1.5); POTASSIUM 3.6 mmol/L (3.5-5.1)
[2018-07-04 04:44] LABS: PLATELET MORPHOLOGY COMMENT SLIGHTLY DECREASED
[2018-07-04] MEDS: INSULIN HUMULIN R 100 UNIT/ML 3ML SQ SCH ×6 (05:25→16:30)
[2018-07-04] MEDS: DILTIAZEM HCL 60 MG TABLET PO SCH ×2 (05:27→12:00)
[2018-07-04] MEDS: LEVOTHYROXINE 112 MCG TABLET PO SCH (05:27)
[2018-07-04] MEDS: LEVOTHYROXINE 25 MCG TABLET PO SCH (05:27)
[2018-07-04] MEDS: INSULIN GLARGINE 100 UNITS/ML 10 ML VIAL SQ SCH (05:44)
[2018-07-04] MEDS: BUDESONIDE 0.5 MG/2 ML INH IH SCH (06:22)
[2018-07-04 08:00] VITALS: BP 108/54
[2018-07-04] MEDS: CLONAZEPAM 0.5 MG TABLET PO PRN (08:03)
--- NOTE | 2018-07-04 08:30 | NUR ---
DR. CASSIDY HALL MD REGARDING CONSULT. AWAITING CALLBACK.
[2018-07-04] MEDS: SOTALOL HCL 80 MG TABLET PO SCH (09:00)
[2018-07-04] MEDS: DIGOXIN 125 MCG TABLET PO SCH (09:00)
[2018-07-04] MEDS: DESVENLAFAXINE SUCCINATE 100 MG PO SCH (09:00)
[2018-07-04] MEDS: LOSARTAN 100 MG TABLET PO SCH (09:00)
[2018-07-04] MEDS: FUROSEMIDE 40 MG TABLET PO SCH (09:32)
[2018-07-04] MEDS: FAMOTIDINE 20MG TAB 20 MG TAB PO SCH (09:32)
[2018-07-04] MEDS: FOLIC ACID 1 MG TABLET PO SCH (09:32)
[2018-07-04] MEDS: PREDNISONE 10 MG TABLET PO SCH (09:32)
[2018-07-04] MEDS: MONTELUKAST SODIUM 10 MG TAB PO SCH (09:32)
[2018-07-04] MEDS: APIXABAN 2.5 MG TABLET PO SCH (09:32)
[2018-07-04 11:53] VITALS: BP 119/59
--- NOTE | 2018-07-04 11:59 | NUR ---
DC PLAN STILL PENDING ENT? DC plan still pending ENT consult- discussed w dr. Oropeza and primary RN; CM suggests having pt be discharged to follow up with ENT as outpatient; ST diet recommendations in place as well at speech therapy at [facility]. will follow; EMS form updated. Addendum: 07/04/18 at 1211 by BIJU ROBLES RN CM Amended: Links added.
--- NOTE | 2018-07-04 12:28 | NUR ---
SPOKE TO DR. BENJAMIN SEE ORDERS. JUNE F/UP OUTPATIENT IN CLINIC
--- NOTE | 2018-07-04 14:00 | NUR ---
DR. RUY BAGLEY NOTIFIED OF DR. BENJAMIN'S OKAY TO DISCHARGE PATIENT FROM ENT STANDPOINT. DR. CHAUHAN'S CALLED ME TO PROCEED WITH DISCHARGE/TRANSFER TO [facility] TODAY.
--- NOTE | 2018-07-04 15:00 | NUR ---
DR. HERNANDEZ CALLED PATIENT PRIMARY MD REGARDING MEDICATION RECONCILIATION PAPERWORK. ORDERS GIVEN VIA TELEPHONE. READBACK OF ORDERS GIVEN TO DR. HERNANDEZ.
--- NOTE | 2018-07-04 16:45 | NUR ---
ABIODUN ASENCIO, AJAY ASENCIO, CLAM DREDGE BOAT CAPTAIN FOR DR. DIAMANTE FLEMING HERE TO SEE PATIENT. ABIODUN ASENCIO NP GAVE ME OKAY TO REMOVE PICC LINE PRIOR TO DISCHARGE/TRANSFER TO SNF AND OKAY TO DISCHARGE/TRANSFER FROM PULMONOLOGY STANDPOINT.
[2018-07-04 16:48] VITALS: BP 128/57
--- NOTE | 2018-07-04 17:00 | NUR ---
DISCHARGE TO [facility] NURSE REPORT GIVEN TO JESSICA FLOR OF [facility] [phone]. INFORMED JESSICA FLOR OF SCHEDULED F/U WITH DR. REDMOND, PATIENT PENDING TO HAVE ONE WEEK F/U APPT SCHEDULED WITH DR. HERNANDEZ AND PENDING TO HAVE ONE WEEK F/U APPT SCHEDULED WITH DR. BENJAMIN. ALSO INFORMED OF DR. CHAUHAN'S DISCHARGE ORDERS, RX (ELIQUIS, ULTRACET), DAILY DRESSING CHANGES TO RIGHT KNEE, SPEECH THERAPY RECOMMENDATIONS, AND MODIFIED DIET. ORIGINAL RX FOR ELIQUIS AND ULTRACET, CHEST XRAY, H&P, COPY OF MEDICATION RECONCILIATION PLACED IN PATIENT CHART COPY. DISCHARGE INSTRUCTIONS PROVIDED TO PATIENT (NOTED ABOVE), PATIENT VERBALIZED UNDERSTANDING OF DISCHARGE TEACHING. REMOVED RIGHT UPPER ARM PICC LINE, PICC LINE TIP INTACT, APPLIED OCCLUSIVE DRESSING OVER SITE. PATIENT TOLERATED PICC LINE REMOVAL WELL. PERFORMED DRESSING CHANGE TO RIGHT KNEE. RIGHT KNEE INCISION APPROXIMATED AND ASYMPTOMATIC, FRANCA INTACT, NO DRAINAGE OR SWELLING NOTED TO INCISION SITE. CLEANSED RIGHT KNEE INCISION WITH BETADINE, COVERED WITH 4X4 GAUZE AND SECURED WITH MEDIPORE TAPE. REAPPLIED JOANNE WRAP OVER RLE. PATIENT TOLERATED RIGHT KNEE DRESSING CHANGE WELL.. CALLED PATIENTS SON, JHONNY GUERRA ([phone]) PER PATIENT REQUEST TO INFORM HIM THAT PATIENT WILL BE TRANSFERRED TO [facility] TODAY, BUT NO ANSWER FROM PROVIDED PHONE NUMBER AT THIS TIME. PATIENT REPORTS NO PAIN AT TIME OF DISCHARGE AND APPEARS IN NO APPARENT DISTRESS. CALL [facility] AND AWAITING AWAITING EMS PICKUP TO TRANSFER PATIENT.
== END 2018-07-04 17:09 | DRG 466 ==
LOC: DAHIP 06-19 09:22 → 4AH 06-19 17:21 → 2CV 06-21 22:24 → 2CH 06-22 06:27 → 2AH 06-26 17:20 → 4AH 06-29 11:03
PROVIDERS: ADMIT Orthopaedic Surgery; ATTEND Orthopaedic Surgery
PROC: 0QBG0ZZ Excision of Right Tibia, Open Approach (ICD-10-PCS; 2018-06-19)
PROC: 5A09357 Assistance with Respiratory Ventilation, Less than 24 Consecutive Hours, Continuous Positive Airway Pressure (ICD-10-PCS; 2018-06-19)
PROC: 0SHC08Z Insertion of Spacer into Right Knee Joint, Open Approach (ICD-10-PCS; principal; 2018-06-19 13:30)
PROC: 5A1945Z Respiratory Ventilation, 24-96 Consecutive Hours (ICD-10-PCS; 2018-06-21 17:53)
PROC: 30233R1 Transfusion of Nonautologous Platelets into Peripheral Vein, Percutaneous Approach (ICD-10-PCS; 2018-06-22)
PROC: 02HV33Z Insertion of Infusion Device into Superior Vena Cava, Percutaneous Approach (ICD-10-PCS; 2018-06-22)
PROC: 0SPC08Z Removal of Spacer from Right Knee Joint, Open Approach (ICD-10-PCS; 2018-06-24)
PROC: 0SRC0J9 Replacement of Right Knee Joint with Synthetic Substitute, Cemented, Open Approach (ICD-10-PCS; 2018-06-24)
PROC: 5A09357 Assistance with Respiratory Ventilation, Less than 24 Consecutive Hours, Continuous Positive Airway Pressure (ICD-10-PCS; 2018-06-25)
DX: S82.101A Unspecified fracture of upper end of right tibia, initial encounter for closed fracture (principal); I50.23 Acute on chronic systolic (congestive) heart failure; J96.01 Acute respiratory failure with hypoxia; D61.818 Other pancytopenia; J44.1 Chronic obstructive pulmonary disease with (acute) exacerbation; I42.9 Cardiomyopathy, unspecified; J38.01 Paralysis of vocal cords and larynx, unilateral; M17.11 Unilateral primary osteoarthritis, right knee; K74.60 Unspecified cirrhosis of liver; D69.59 Other secondary thrombocytopenia; I48.91 Unspecified atrial fibrillation; G47.33 Obstructive sleep apnea (adult) (pediatric); D73.1 Hypersplenism; E03.9 Hypothyroidism, unspecified; R49.0 Dysphonia; E11.649 Type 2 diabetes mellitus with hypoglycemia without coma; E66.01 Morbid (severe) obesity due to excess calories; G89.4 Chronic pain syndrome; I11.0 Hypertensive heart disease with heart failure; I25.10 Atherosclerotic heart disease of native coronary artery without angina pectoris; K72.90 Hepatic failure, unspecified without coma; Z96.651 Presence of right artificial knee joint; Z68.39 Body mass index [BMI] 39.0-39.9, adult; Z91.040 Latex allergy status; Z88.8 Allergy status to other drugs, medicaments and biological substances; Z91.018 Allergy to other foods; Z79.4 Long term (current) use of insulin; Z93.0 Tracheostomy status; Y93.89 Activity, other specified; Y92.89 Other specified places as the place of occurrence of the external cause; Y99.8 Other external cause status
CPT/HCPCS: 36415; 36600; 71045; 71275; 73562; 73590; 74230; 80048; 80053; 81001; 82140; 82550; 82803; 82947; 82948; 83605; 83735; 83874; 83880; 84100; 84132; 84443; 84484; 85025; 85027; 85049; 85610; 85730; 86850; 86900; 86901; 87071; 87205; 87641; 88302; 88304; 88307; 88311; 92526; 92610; 92611; 93005; 93306; 93970; 94002; 94003; 94640; 94660; 94664; 96374; 97039; A4344; C1713; C1751; C1776; C1894; G0378; J0330; J0360; J0690; J1100; J1160; J1170; J1580; J1644; J1815; J1885; J1940; J2001; J2060; J2250; J2370; J2405; J2704; J2710; J2765; J2795; J2920; J3010; J3370; J3475; J3480; J3490; J7030; J7070; J7120; J7512; P9034; Q9967

== ENCOUNTER → 2018-06-09 | Outpatient (CLI) | payer MEDICARE ==
[~2018-06-09] MED LIST changes: +LACT10SO PO; +LACT10SO32 PO; +SYMB8060 IH; +TRAM50TA4 PO; +ZOLP5TAB2 PO
== END | disposition home or self-care (01) ==
LOC: OIH 10:30
PROVIDERS: ATTEND Internal Medicine
DX: I48.91 Unspecified atrial fibrillation (principal); I70.0 Atherosclerosis of aorta; M85.88 Other specified disorders of bone density and structure, other site; M47.814 Spondylosis without myelopathy or radiculopathy, thoracic region; M19.012 Primary osteoarthritis, left shoulder; M19.011 Primary osteoarthritis, right shoulder
CPT/HCPCS: 71046

== ENCOUNTER → 2018-09-20 | Outpatient (CLI) | payer MEDICARE ==
[~2018-09-20] MED LIST changes: +ALBU18HF7 IH; -ALBUHFA IH; +APIX2.5T PO; -APIX5TAB PO; +ARIP20TA10 PO; +ASCO500C18 PO; +BUDE0.256 IH; +BUDE10.22 IH; +DESV100T10 PO; -DESV100T16 PO; +DIGO125T87 PO; +DILT30TA38 PO; -ERGO500014 PO; +FURO20TA4 PO; +IBUP-2354 PO; +INSLAN SQ; +INSREG SQ; +IPRA3AMP24 IH; -LACT10SO32 PO; +LEVO5TAB13 PO; +MAGN200T8 PO; -MAGN400C PO; +MULT-264 PO; +PRED10TA3 PO; -SOTA80TA PO; +SOTA80TA20 PO; -SYMB8060 IH; +TRAM50TA2 PO; -TRAM50TA4 PO; +ZOLP10TA2 PO; -ZOLP5TAB2 PO
== END | disposition home or self-care (01) ==
LOC: OIH 12:32
PROVIDERS: ATTEND Internal Medicine
DX: M25.561 Pain in right knee (principal); Z96.651 Presence of right artificial knee joint
CPT/HCPCS: 73560